=== PATIENT | male | born 1945 | race Two or more races ===

== ENCOUNTER → 2016-12-08 | Outpatient (CLI) | payer OTHER, MEDICARE ==
[2016-12-08 09:54] LABS: Basophils # (auto) 0 uL; Basophils % (auto) 0.6 % (0.0-2.0); Eosinophils # (auto) 0.1 uL; Eosinophils % (auto) 1.5 % (0.0-7.0); Hematocrit 40.4 % (41.0-53.0); Hemoglobin 13.2 g/dL (13.5-17.5); Lymphocytes # (auto) 3.1 uL; Lymphocytes % (auto) 36.8 % (10.0-50.0); Mean Corpuscular Hemoglobin 29.2 pg (28.0-32.0); Mean Corpuscular Hgb Conc. 32.6 g/dL (32.0-36.0); Mean Corpuscular Volume 89.6 fL (80.0-100.0); Mean Platelet Volume 7.2 fL (7.4-10.4); Monocytes # (auto) 0.5 uL; Monocytes % (auto) 5.6 % (0.0-12.0); Neutrophils # (auto) 4.7 uL; Neutrophils % (auto) 55.5 % (37.0-80.0); Platelet Count (auto) 374 10^3/uL (140-450); Red Cell Distribution Width 14.2 % (11.6-16.0); White Blood Cell 8.4 10^3/uL (4.4-10.8)
[2016-12-08 10:26] LABS: BUN/Creatinine Ratio 15.2; Bilirubin, Total 0.6 mg/dL (0.2-1.0); Calcium 8.9 mg/dL (8.5-10.1); Potassium 3.6 mmol/L (3.5-5.1); Total Protein 8.4 g/dL (6.4-8.2)
== END | disposition home or self-care (01) ==
LOC: LAB 08:56
PROVIDERS: ATTEND Family Medicine
DX: R50.9 Fever, unspecified (principal)
CPT/HCPCS: 36415; 80053; 85025; 85049

== ENCOUNTER → 2018-11-24 | Outpatient (CLI) | payer OTHER ==
[2018-11-24 09:48] LABS: Urine WBC None Seen /hpf (0 - 3)
[2018-11-24 09:56] LABS: Basophils # (auto) 0.1 uL; Basophils % (auto) 0.9 % (0.0-2.0); Eosinophils # (auto) 0.3 uL; Eosinophils % (auto) 4.4 % (0.0-7.0); Hematocrit 47.9 % (41.0-53.0); Hemoglobin 16.4 g/dL (13.5-17.5); Lymphocytes # (auto) 2.3 uL; Lymphocytes % (auto) 34.2 % (10.0-50.0); Mean Corpuscular Hemoglobin 31.6 pg (28.0-32.0); Mean Corpuscular Hgb Conc. 34.2 g/dL (32.0-36.0); Mean Corpuscular Volume 92.4 fL (80.0-100.0); Monocytes # (auto) 0.5 uL; Monocytes % (auto) 6.8 % (0.0-12.0); Neutrophils # (auto) 3.6 uL; Neutrophils % (auto) 53.7 % (37.0-80.0); Platelet Count (auto) 208 10^3/uL (140-450); Red Blood Cells 5.19 10^6/uL (4.5-5.90); Red Cell Distribution Width 13.8 % (11.8-14.3); White Blood Cell 6.8 10^3/uL (4.4-10.8)
[2018-11-24 10:18] LABS: Albumin 3.4 g/dL (3.4-5.0); Calcium 8.5 mg/dL (8.5-10.1)
[2018-11-24 10:19] LABS: INR 0.91 (0.9-1.15); Partial Thromboplastin Time 31.1 sec (23.78-33.04); Prothrombin Time 9.8 sec (9.27-12.13)
[2018-11-24 10:23] LABS: Free T4 (Free Thyroxine) 0.98 ng/dL (0.89-1.76); Urine Bacteria NONE SEEN /hpf (None Seen); Urine Blood Negative /uL (Negative); Urine Specific Gravity 1.014 (1.001-1.035)
[2018-11-24 10:24] LABS: Bilirubin, Total 0.7 mg/dL (0.2-1.0); Folate (Folic Acid) 17.24 ng/mL (5.38-24)
== END | disposition home or self-care (01) ==
LOC: LAB 09:05
PROVIDERS: ATTEND Internal Medicine
DX: E78.5 Hyperlipidemia, unspecified (principal); I10 Essential (primary) hypertension
CPT/HCPCS: 36415; 80053; 80061; 81001; 82607; 82746; 83036; 84439; 84443; 85025; 85610; 85730; 86704; 86706; 86708; 86803; 87340

== ENCOUNTER → 2020-01-30 | Outpatient (CLI) | payer OTHER ==
[2020-01-30 08:28] LABS: Urine WBC None Seen /hpf (0 - 3)
[2020-01-30 08:31] LABS: Basophils # (auto) 0 10 ^3/uL (0-0.2); Basophils % (auto) 0.7 % (0.0-2.0); Eosinophils # (auto) 0.3 10 ^3/uL (0-0.8); Eosinophils % (auto) 4.3 % (0.0-7.0); Hematocrit 46.9 % (41.0-53.0); Lymphocytes # (auto) 2.2 10 ^3/uL (0.4-5.4); Lymphocytes % (auto) 36.6 % (10.0-50.0); Mean Corpuscular Hemoglobin 31.5 pg (28.0-32.0); Mean Corpuscular Volume 92.6 fL (80.0-100.0); Monocytes # (auto) 0.3 10 ^3/uL (0-1.3); Monocytes % (auto) 5.1 % (0.0-12.0); Neutrophils # (auto) 3.2 10 ^3/uL (1.6-8.6); Neutrophils % (auto) 53.3 % (37.0-80.0); Nucleated Red Blood Cells % 0.1 %; Platelet Count (auto) 226 10^3/uL (140-450); Red Blood Cells 5.07 10^6/uL (4.5-5.90); White Blood Cell 5.9 10^3/uL (4.4-10.8)
[2020-01-30 08:32] LABS: Urine Bacteria NONE SEEN /hpf (None Seen); Urine Blood Negative /uL (Negative); Urine Specific Gravity 1.008 (1.001-1.035)
[2020-01-30 09:53] LABS: Potassium 3.9 mmol/L (3.5-5.1)
[2020-01-30 10:01] LABS: Folate (Folic Acid) 13.37 ng/mL (5.38-24); Prostate Specific Antigen 3.79 ng/mL (0.0-4.0)
[2020-01-30 10:04] LABS: Albumin 3.3 g/dL (3.4-5.0); BUN/Creatinine Ratio 10.7; Bilirubin, Total 0.5 mg/dL (0.2-1.0); Calcium 8.9 mg/dL (8.5-10.1); Total Protein 7.9 g/dL (6.4-8.2)
== END | disposition home or self-care (01) ==
LOC: LAB 08:10
PROVIDERS: ATTEND Nurse Practitioner
DX: I10 Essential (primary) hypertension (principal); E78.5 Hyperlipidemia, unspecified
CPT/HCPCS: 36415; 80053; 80061; 81001; 82306; 82607; 82746; 84153; 84443; 85025

== ENCOUNTER → 2021-06-24 | Outpatient (CLI) | payer OTHER ==
[2021-06-24 07:59] LABS: Basophils # (auto) 0.1 10 ^3/uL (0-0.2); Basophils % (auto) 1.3 % (0.0-2.0); Eosinophils # (auto) 0.2 10 ^3/uL (0-0.8); Eosinophils % (auto) 3.9 % (0.0-7.0); Hematocrit 44.9 % (41.0-53.0); Hemoglobin 15.6 g/dL (13.5-17.5); Lymphocytes % (auto) 32.4 % (10.0-50.0); Mean Corpuscular Hemoglobin 31.8 pg (28.0-32.0); Mean Corpuscular Hgb Conc. 34.8 g/dL (32.0-36.0); Mean Corpuscular Volume 91.2 fL (80.0-100.0); Monocytes # (auto) 0.4 10 ^3/uL (0-1.3); Monocytes % (auto) 6.1 % (0.0-12.0); Neutrophils # (auto) 3.5 10 ^3/uL (1.6-8.6); Neutrophils % (auto) 56.3 % (37.0-80.0); Red Blood Cells 4.92 10^6/uL (4.5-5.90); Red Cell Distribution Width 14.1 % (11.8-14.3); White Blood Cell 6.3 10^3/uL (4.4-10.8)
[2021-06-24 08:01] LABS: Urine Bacteria NONE SEEN /hpf (None Seen); Urine Blood Negative /uL (Negative); Urine Specific Gravity 1.013 (1.001-1.035); Urine WBC <1 /hpf (0 - 3)
[2021-06-24 08:42] LABS: Albumin 3.1 g/dL (3.4-5.0); Calcium 8.4 mg/dL (8.5-10.1); Potassium 3.7 mmol/L (3.5-5.1)
[2021-06-24 08:48] LABS: BUN/Creatinine Ratio 16.2; Bilirubin, Total 0.8 mg/dL (0.2-1.0); Total Protein 7.8 g/dL (6.4-8.2)
== END | disposition home or self-care (01) ==
LOC: LAB 07:45
PROVIDERS: ATTEND Nurse Practitioner
DX: I10 Essential (primary) hypertension (principal); E78.5 Hyperlipidemia, unspecified; N40.1 Benign prostatic hyperplasia with lower urinary tract symptoms
CPT/HCPCS: 36415; 80053; 80061; 81001; 84153; 84154; 84443; 85025

== ENCOUNTER → 2021-09-30 | Day surgery (SDC) | payer OTHER ==
[2021-09-25 11:30] LABS: Potassium 3.8 mmol/L (3.5-5.1)
[2021-09-25 11:51] LABS: Albumin 3.4 g/dL (3.4-5.0); BUN/Creatinine Ratio 14.4; Bilirubin, Total 0.6 mg/dL (0.2-1.0); Calcium 8.9 mg/dL (8.5-10.1); Total Protein 7.6 g/dL (6.4-8.2)
[2021-09-25 13:51] LABS: Basophils # (auto) 0 10 ^3/uL (0-0.2); Basophils % (auto) 0.7 % (0.0-2.0); Eosinophils # (auto) 0.2 10 ^3/uL (0-0.8); Eosinophils % (auto) 2.9 % (0.0-7.0); Hematocrit 46.8 % (41.0-53.0); Lymphocytes # (auto) 2.2 10 ^3/uL (0.4-5.4); Lymphocytes % (auto) 33.1 % (10.0-50.0); Mean Corpuscular Hemoglobin 31.7 pg (28.0-32.0); Mean Corpuscular Hgb Conc. 34.2 g/dL (32.0-36.0); Mean Corpuscular Volume 92.7 fL (80.0-100.0); Monocytes # (auto) 0.3 10 ^3/uL (0-1.3); Monocytes % (auto) 5.1 % (0.0-12.0); Neutrophils # (auto) 3.8 10 ^3/uL (1.6-8.6); Neutrophils % (auto) 58.2 % (37.0-80.0); Nucleated Red Blood Cells % 0.1 %; Red Blood Cells 5.04 10^6/uL (4.5-5.90); Red Cell Distribution Width 13.8 % (11.8-14.3); White Blood Cell 6.6 10^3/uL (4.4-10.8)
[~2021-09-30] VITALS: Ht 165.1 cm; Wt 82.6 kg
[2021-09-30] MEDS: diphenhdrAMINE HCL 50 MG/1 ML VL ONE ×2 (14:48→14:51)
[2021-09-30] MEDS: fentaNYL CITRATE 100 MCG/2 ML VL ONE ×2 (14:48→14:51)
[2021-09-30] MEDS: MIDAZOLAM HCL 5 MG/ML-1ML VIAL ONE ×2 (14:48→14:51)
[2021-09-30 15:35] VITALS: BP 142/82
== END | disposition home or self-care (01) ==
LOC: GI 12:59
PROVIDERS: ATTEND Internal Medicine Gastroenterology
DX: Z12.11 Encounter for screening for malignant neoplasm of colon (principal); K57.30 Diverticulosis of large intestine without perforation or abscess without bleeding; K64.8 Other hemorrhoids; N40.0 Benign prostatic hyperplasia without lower urinary tract symptoms; M13.862 Other specified arthritis, left knee; Z68.30 Body mass index [BMI] 30.0-30.9, adult; Z20.822 Contact with and (suspected) exposure to COVID-19; Z86.010 Personal history of colon polyps; Z98.890 Other specified postprocedural states; Z79.899 Other long term (current) drug therapy
CPT/HCPCS: 36415; 45378; 80053; 85025; J1200; J2250; J3010; J7030; U0003; 99152

== ENCOUNTER → 2021-12-16 | Day surgery (SDC) | payer OTHER ==
[2021-12-11 11:16] LABS: INR 0.97 (0.9-1.15); Partial Thromboplastin Time 30.5 sec (23.6-33.0)
[2021-12-11 11:17] LABS: Basophils # (auto) 0.1 10 ^3/uL (0-0.2); Basophils % (auto) 0.9 % (0.0-2.0); Eosinophils # (auto) 0.2 10 ^3/uL (0-0.8); Eosinophils % (auto) 2.7 % (0.0-7.0); Hematocrit 44.1 % (41.0-53.0); Hemoglobin 15.1 g/dL (13.5-17.5); Lymphocytes % (auto) 30.7 % (10.0-50.0); Mean Corpuscular Hemoglobin 31.2 pg (28.0-32.0); Mean Corpuscular Hgb Conc. 34.2 g/dL (32.0-36.0); Mean Corpuscular Volume 91.3 fL (80.0-100.0); Monocytes # (auto) 0.3 10 ^3/uL (0-1.3); Monocytes % (auto) 5.1 % (0.0-12.0); Neutrophils % (auto) 60.6 % (37.0-80.0); Nucleated Red Blood Cells % 0.1 %; Red Blood Cells 4.84 10^6/uL (4.5-5.90); Red Cell Distribution Width 14.3 % (11.8-14.3); White Blood Cell 6.6 10^3/uL (4.4-10.8)
[2021-12-11 11:47] LABS: Potassium 3.7 mmol/L (3.5-5.1)
[2021-12-11 12:07] LABS: Albumin 3.5 g/dL (3.4-5.0); BUN/Creatinine Ratio 14.2; Bilirubin, Total 0.4 mg/dL (0.2-1.0); Calcium 8.8 mg/dL (8.5-10.1); Total Protein 7.8 g/dL (6.4-8.2)
[~2021-12-16] VITALS: Ht 157.5 cm; Wt 82.1 kg
[~2021-12-16] MED LIST: FINA5TAB4 PO; LIDOCAINE VISCOUS 2% 15ML UD ONE; SODIUM CHLORIDE LOCK 10 ML ONE; TAMS0.4C36 PO; diphenhdrAMINE HCL 50 MG/1 ML VL ONE
[2021-12-16] MEDS: fentaNYL CITRATE 100 MCG/2 ML VL ONE ×2 (14:05→14:08)
[2021-12-16] MEDS: MIDAZOLAM HCL 5 MG/ML-1ML VIAL ONE ×2 (14:05→14:08)
[2021-12-16 15:35] VITALS: BP 127/69
== END | disposition home or self-care (01) ==
LOC: GI 12:04
PROVIDERS: ATTEND Internal Medicine Gastroenterology
DX: R10.13 Epigastric pain (principal); C16.9 Malignant neoplasm of stomach, unspecified; K21.9 Gastro-esophageal reflux disease without esophagitis; K44.9 Diaphragmatic hernia without obstruction or gangrene; K29.50 Unspecified chronic gastritis without bleeding; K25.9 Gastric ulcer, unspecified as acute or chronic, without hemorrhage or perforation; K29.80 Duodenitis without bleeding; M19.90 Unspecified osteoarthritis, unspecified site; Z98.890 Other specified postprocedural states; Z79.899 Other long term (current) drug therapy; Z20.822 Contact with and (suspected) exposure to COVID-19
CPT/HCPCS: 36415; 43239; 80053; 85025; 85610; 85730; 88305; 88342; J1200; J2250; J3010; J7030; U0003; 99152

== ENCOUNTER → 2024-01-20 | Outpatient (CLI) | payer OTHER ==
[~2024-01-20] MED LIST changes: -LIDOCAINE VISCOUS 2% 15ML UD ONE; -SODIUM CHLORIDE LOCK 10 ML ONE; -diphenhdrAMINE HCL 50 MG/1 ML VL ONE
[2024-01-20 08:32] LABS: Basophils # (auto) 0 10 ^3/uL (0-0.2); Basophils % (auto) 0.5 % (0.0-2.0); Eosinophils # (auto) 0.2 10 ^3/uL (0-0.8); Eosinophils % (auto) 3.1 % (0.0-7.0); Hematocrit 49.3 % (41.0-53.0); Hemoglobin 16.5 g/dL (13.5-17.5); Lymphocytes # (auto) 2.3 10 ^3/uL (0.4-5.4); Lymphocytes % (auto) 29.3 % (10.0-50.0); Mean Corpuscular Hemoglobin 30.9 pg (28.0-32.0); Mean Corpuscular Hgb Conc. 33.5 g/dL (32.0-36.0); Mean Corpuscular Volume 92.4 fL (80.0-100.0); Monocytes # (auto) 0.4 10 ^3/uL (0-1.3); Monocytes % (auto) 5.7 % (0.0-12.0); Neutrophils # (auto) 4.7 10 ^3/uL (1.6-8.6); Neutrophils % (auto) 61.4 % (37.0-80.0); Red Blood Cells 5.34 10^6/uL (4.5-5.90); Red Cell Distribution Width 14.1 % (11.8-14.3); White Blood Cell 7.7 10^3/uL (4.4-10.8)
[2024-01-20 08:37] LABS: Urine Bacteria NONE SEEN /hpf (None Seen); Urine Blood TRACE /uL (Negative); Urine Clarity Clear (Clear); Urine Color Colorless (Yellow); Urine Protein, UAD Negative (Negative); Urine Specific Gravity 1.011 (1.001-1.035); Urine Urobilinogen Normal (Negative); Urine WBC <1 /hpf (0 - 3)
[2024-01-20 08:56] LABS: Alanine Aminotransferase 19 U/L (7-40); Albumin 4.4 g/dL (3.2-4.8); Alkaline Phosphatase 137 U/L (46-116); Anion Gap 6 (5-15); Aspartate Aminotransferase 23 U/L (13-40); BUN/Creatinine Ratio 11.7 (10.0-20.0); Bilirubin, Total 0.7 mg/dL (0.2-1.0); Blood Urea Nitrogen 14 mg/dL (9-23); Calcium 9.6 mg/dL (8.5-10.1); Carbon Dioxide 27 mmol/L (20-30); Chloride 107 mmol/L (98-107); Glucose 105 mg/dL (74-106); HDL Cholesterol 52 mg/dL (40-59); LDL Cholesterol 117 mg/dL (< 100); Sodium 140 mmol/L (136-145); Triglycerides 131 mg/dL (< 150)
[2024-01-20 08:57] LABS: Total Protein 8.2 g/dL (5.7-8.2)
[2024-01-20 09:14] LABS: Cholesterol 173 mg/dL (< 200)
[2024-01-21 08:06] LABS: PSA Free 1.37 ng/mL; Prostate Specific Antigen 7.7 ng/mL (0.0-4.0)
== END | disposition home or self-care (01) ==
LOC: LAB 08:17
PROVIDERS: ATTEND Nurse Practitioner
DX: I10 Essential (primary) hypertension (principal); E78.5 Hyperlipidemia, unspecified
CPT/HCPCS: 36415; 80053; 80061; 81001; 83036; 84153; 84154; 84443; 85025

== ENCOUNTER → 2024-05-17 | Outpatient (CLI) | payer OTHER ==
[~2024-05-17] VITALS: Ht 157.5 cm; Wt 84.8 kg
[2024-05-17] MEDS: ADENOSINE 71 MG in GIVE UN-DILUTED 0 ML IV ONE (11:06)
== END | disposition home or self-care (01) ==
LOC: XYW 08:02
PROVIDERS: ATTEND Student in an Organized Health Care Education/Training Program
DX: Z01.810 Encounter for preprocedural cardiovascular examination (principal); E78.5 Hyperlipidemia, unspecified; N40.0 Benign prostatic hyperplasia without lower urinary tract symptoms; R94.31 Abnormal electrocardiogram [ECG] [EKG]; Z87.891 Personal history of nicotine dependence; I49.3 Ventricular premature depolarization
CPT/HCPCS: 78452; 93017; A9500; J0153

== ENCOUNTER 2024-08-21 06:00 | Inpatient (IN) | payer OTHER ==
[2024-08-17 11:52] LABS: Urine Bacteria None Seen /hpf (None Seen)
[2024-08-17 12:13] LABS: Basophils # (auto) 0 10 ^3/uL (0-0.2); Basophils % (auto) 0.6 % (0.0-2.0); Eosinophils # (auto) 0.2 10 ^3/uL (0-0.8); Eosinophils % (auto) 3.1 % (0.0-7.0); Hematocrit 45.3 % (41.0-53.0); Hemoglobin 15.7 g/dL (13.5-17.5); Lymphocytes # (auto) 2.1 10 ^3/uL (0.4-5.4); Lymphocytes % (auto) 26.2 % (10.0-50.0); Mean Corpuscular Hemoglobin 32.1 pg (28.0-32.0); Mean Corpuscular Hgb Conc. 34.8 g/dL (32.0-36.0); Mean Corpuscular Volume 92.3 fL (80.0-100.0); Monocytes # (auto) 0.6 10 ^3/uL (0-1.3); Monocytes % (auto) 7.6 % (0.0-12.0); Neutrophils % (auto) 62.5 % (37.0-80.0); Nucleated Red Blood Cells % 0.1 %; Platelet Count (auto) 294 10^3/uL (140-450); Red Cell Distribution Width 14.3 % (11.8-14.3); Urine Blood TRACE /uL (Negative); Urine Clarity Clear (Clear); Urine Color Light-Yellow (Yellow); Urine Protein, UAD Negative (Negative); Urine Specific Gravity 1.012 (1.001-1.035); Urine Urobilinogen Normal (Negative); Urine WBC <1 /hpf (0 - 3)
[2024-08-17 12:30] LABS: INR 1.01 (0.9-1.15); Partial Thromboplastin Time 29.6 SEC (24.5-34.5); Prothrombin Time 10.7 sec (9.3-11.8)
[2024-08-17 12:49] LABS: Alanine Aminotransferase 17 U/L (7-40); Albumin 4.2 g/dL (3.2-4.8); Alkaline Phosphatase 140 U/L (46-116); Anion Gap 8 (5-15); Calcium 9.6 mg/dL (8.7-10.4); Carbon Dioxide 25 mmol/L (20-31); Chloride 107 mmol/L (98-107); Potassium 3.6 mmol/L (3.5-5.1); Sodium 140 mmol/L (136-145)
[2024-08-17 12:50] LABS: Glucose 123 mg/dL (74-106)
[2024-08-17 12:51] LABS: BUN/Creatinine Ratio 11.5 (10.0-20.0); Blood Urea Nitrogen 13 mg/dL (9-23)
[2024-08-17 12:52] LABS: Aspartate Aminotransferase 17 U/L (13-40)
[2024-08-17 12:53] LABS: Bilirubin, Total 0.8 mg/dL (0.2-1.0); Total Protein 7.9 g/dL (5.7-8.2)
[~2024-08-21] VITALS: Ht 160 cm; Wt 75.4 kg
[2024-08-21] VITALS (16 sets, daily range): BP systolic 119–170; BP diastolic 63–94; PULSE 85–111; RESP 14–22; TEMP 97.3–98.4; O2SAT 94–100
[2024-08-21] MEDS ORDERED: levoFLOXacin 500MG 100 ML IV ONE (07:26)
[2024-08-21] MEDS ORDERED: MIDAZOLAM HCL 2MG/2ML 2ml VIAL (1mg/ml) ONE (07:27)
[2024-08-21] MEDS ORDERED: fentaNYL CITRATE 100 MCG/2 ML VL ONE (07:27)
[2024-08-21] MEDS ORDERED: DexAMETHasone SOD PHOS 10MG/1ML VIAL INJ ONE (07:28)
[2024-08-21] MEDS ORDERED: KETOROLAC TROMETH 30 MG/ML 1ML VIAL ONE (07:28)
[2024-08-21] MEDS ORDERED: PROPOFOL 10 MG/ML 20 ML IV ONE (07:28)
[2024-08-21] MEDS ORDERED: GLYCOPYRROLATE 0.2 MG/ML 1ML VIAL ONE (07:28)
[2024-08-21] MEDS ORDERED: ONDANSETRON HCL 4 MG/2 ML VIAL ONE (07:28)
[2024-08-21] MEDS ORDERED: LIDOCAINE 2% (LOCAL ANESTH.) PF 5ml SDV ONE (07:28)
[2024-08-21] MEDS ORDERED: MEPERIDINE HCL (25 MG/ML) 1ML VIAL ONE (08:05)
[2024-08-21] MEDS ORDERED: HYDROmorphone HCL 2 MG/ML VL/or syr IV PRN (08:45)
[2024-08-21] MEDS: ALBUTEROL SULF 2.5 MG/0.5ML(0.5%) NEB SOLN NEB ONE (09:34)
[2024-08-21] MEDS: IPRATROPIUM BROM 0.5 MG/2.5ML INH SOL NEB ONE (09:35)
[2024-08-21] MEDS ORDERED: MORPHINE SULFATE INJ 2 MG/ml SYRG IV PRN (09:45)
[2024-08-21] MEDS ORDERED: NITROGLYCERIN 0.4 MG SL TAB SL PRN (09:45)
[2024-08-21] MEDS ORDERED: ONDANSETRON HCL 4 MG/2 ML VIAL IV PRN (10:30)
[2024-08-21] MEDS ORDERED: THROAT LOZENGES(CEPASTAT) MT PRN (10:30)
[2024-08-21] MEDS: ALBUTEROL SULF 2.5 MG/0.5ML(0.5%) NEB SOLN NEB SCH (11:48)
[2024-08-21] MEDS: IPRATROPIUM BROM 0.5 MG/2.5ML INH SOL NEB SCH (11:48)
[2024-08-21] MEDS: hydrALAZINE HCL 20 MG/ML VL IV PRN (13:21)
[2024-08-21 14:27] LABS: Basophils # (auto) 0 10 ^3/uL (0-0.2); Basophils % (auto) 0.1 % (0.0-2.0); Eosinophils # (auto) 0 10 ^3/uL (0-0.8); Hematocrit 45.4 % (41.0-53.0); Hemoglobin 15.8 g/dL (13.5-17.5); Lymphocytes # (auto) 0.6 10 ^3/uL (0.4-5.4); Lymphocytes % (auto) 6.1 % (10.0-50.0); Mean Corpuscular Hemoglobin 32.6 pg (28.0-32.0); Mean Corpuscular Hgb Conc. 34.8 g/dL (32.0-36.0); Mean Corpuscular Volume 93.5 fL (80.0-100.0); Monocytes # (auto) 0.1 10 ^3/uL (0-1.3); Monocytes % (auto) 0.7 % (0.0-12.0); Neutrophils # (auto) 9.3 10 ^3/uL (1.6-8.6); Neutrophils % (auto) 93.1 % (37.0-80.0); Platelet Count (auto) 262 10^3/uL (140-450); Red Blood Cells 4.86 10^6/uL (4.5-5.90)
[2024-08-21] MEDS: ACETAMINOPHEN 500 MG TAB PO PRN (14:38)
[2024-08-21 14:51] LABS: Alanine Aminotransferase 17 U/L (7-40); Albumin 4.2 g/dL (3.2-4.8); Alkaline Phosphatase 139 U/L (46-116); Anion Gap 13 (5-15); Aspartate Aminotransferase 23 U/L (13-40); BUN/Creatinine Ratio 10.5 (10.0-20.0); Bilirubin, Total 0.5 mg/dL (0.2-1.0); Blood Urea Nitrogen 12 mg/dL (9-23); Calcium 9.4 mg/dL (8.7-10.4); Carbon Dioxide 20 mmol/L (20-31); Chloride 105 mmol/L (98-107); Glucose 181 mg/dL (74-106); Potassium 3.5 mmol/L (3.5-5.1); Sodium 138 mmol/L (136-145); Total Protein 7.8 g/dL (5.7-8.2)
[2024-08-21] MEDS ORDERED: TRAM50TA2 PO (19:38)
[2024-08-21] MEDS ORDERED: CIPR500T4 PO (19:38)
[2024-08-21] MEDS: SODIUM CHLORIDE 0.9% 1,000 ML IV SCH (22:22)
[2024-08-22] VITALS (10 sets, daily range): BP systolic 112–143; BP diastolic 54–80; PULSE 76–96; RESP 15–20; TEMP 36.8; O2SAT 93–98
[2024-08-22 02:44] LABS: Urine Bacteria FEW /hpf (None Seen); Urine Blood 3+ /uL (Negative); Urine Clarity Turbid (Clear); Urine Color Brown (Yellow); Urine Protein, UAD 1+ (Negative); Urine Specific Gravity 1.013 (1.001-1.035); Urine Urobilinogen Normal (Negative); Urine WBC 6 /hpf (0 - 3); Urine pH 5.5 (5.0-9.0)
[2024-08-22 06:01] LABS: Anion Gap 8 (5-15); Carbon Dioxide 24 mmol/L (20-31); Chloride 108 mmol/L (98-107); Potassium 3.7 mmol/L (3.5-5.1); Sodium 140 mmol/L (136-145)
[2024-08-22 06:07] LABS: BUN/Creatinine Ratio 11.3 (10.0-20.0); Basophils # (auto) 0 10 ^3/uL (0-0.2); Basophils % (auto) 0.1 % (0.0-2.0); Blood Urea Nitrogen 13 mg/dL (9-23); Eosinophils # (auto) 0 10 ^3/uL (0-0.8); Glucose 142 mg/dL (74-106); Hematocrit 40.4 % (41.0-53.0); Hemoglobin 14.2 g/dL (13.5-17.5); Lymphocytes # (auto) 0.9 10 ^3/uL (0.4-5.4); Lymphocytes % (auto) 9.4 % (10.0-50.0); Mean Corpuscular Hemoglobin 32.5 pg (28.0-32.0); Mean Corpuscular Hgb Conc. 35.2 g/dL (32.0-36.0); Mean Corpuscular Volume 92.2 fL (80.0-100.0); Monocytes # (auto) 0.5 10 ^3/uL (0-1.3); Monocytes % (auto) 5.4 % (0.0-12.0); Neutrophils # (auto) 8.5 10 ^3/uL (1.6-8.6); Neutrophils % (auto) 85.1 % (37.0-80.0); Platelet Count (auto) 243 10^3/uL (140-450); Red Blood Cells 4.39 10^6/uL (4.5-5.90); Red Cell Distribution Width 14.4 % (11.8-14.3)
[2024-08-22] MEDS: PNEUMOCOCCAL VACC POLYS 25 MCG/0.5 ML VIAL IM ONE (10:00)
[2024-08-22] MEDS: INFLUENZA QUAD 2023-2024 0.5 ML SYRG IM ONE (10:00)
[2024-08-22] MEDS ORDERED: IPRATROPIUM BROM 0.5 MG/2.5ML INH SOL ONE (18:36)
[2024-08-22] MEDS ORDERED: ALBUTEROL SULF 2.5 MG/0.5ML(0.5%) NEB SOLN ONE (18:36)
== END 2024-08-22 17:55 | disposition home or self-care (01) | DRG 726 ==
LOC: SUR 06:00 → OVERFLOW 09:38 → EAST 11:26
PROVIDERS: ADMIT Internal Medicine; ATTEND Internal Medicine
PROC: 0VB08ZX Excision of Prostate, Via Natural or Artificial Opening Endoscopic, Diagnostic (ICD-10-PCS; principal; 2024-08-21 07:27)
DX: N40.1 Benign prostatic hyperplasia with lower urinary tract symptoms (principal); R32 Unspecified urinary incontinence; R33.8 Other retention of urine; E66.9 Obesity, unspecified; Z68.29 Body mass index [BMI] 29.0-29.9, adult; Z79.899 Other long term (current) drug therapy
CPT/HCPCS: 36415; 71045; 80048; 80053; 81001; 85025; 85610; 85730; 87086; 94640; G0378; J1100; J1885; J1956; J2003; J2250; J2405; J2704

== ENCOUNTER 2024-09-12 16:46 | Inpatient (IN) | payer OTHER ==
[~2024-09-12] VITALS: Ht 160 cm; Wt 84.6 kg
[~2024-09-12 16:46] MED LIST changes: +CIPR500T4 PO; -FINA5TAB4 PO; -TAMS0.4C36 PO; +TRAM50TA2 PO
--- NOTE | 2024-09-12 17:27 | DVHINCON2 ---
Date of service: Sep 12, 2024 Referring Physician Hospitalist Reason for Consultation Prostate cancer BPH/urinary retention subjective fever History of Present Illness Patient with recent diagosis of prostate cancer, s/p cystoscopy/PNBX 08/21/24. Jensen 7(3+4) 3/12 cores positive. He has failed voiding trial 3 times. Choi catheter placed in the clinic today. C/o fever and malaise. He was sent to hospital for admission for medical management. Past Medical History HTN Prostate cancer BPH Past Surgical History Cystoscopy/ TRUS/ PNBX 08/21/24 Family History: FHx: stomach cancer G8 FATHER, Allergies: Coded Allergies: NO KNOWN ALLERGIES (Unverified , 05/17/24) Home Meds Reported Medications Tramadol Hcl (Tramadol Hcl) 50 Mg Tab, 50 MG PO Q6HPRN for pain 08/21/24 Ciprofloxacin Hcl (Ciprofloxacin Hcl) 500 Mg Tab, 500 MG PO BID 08/21/24 Review of Systems malaise fever urinary retention Physical Exam NAD PERRLA, EOMI Neck supple Lungs NRD Heart RRR Abd: distension resolved with Choi : normal NCCE Assessment Prostate cancer BPH/retention Plan/Recommendation Admit for medical management Possible TURP TBA Bone Scan and CT Scan AP NC Plan discussed with: Patient, Spouse, Other PAM RAMIREZ MD Sep 12, 2024 17:27
[2024-09-12] MEDS ORDERED: NITROGLYCERIN 0.4 MG SL TAB SL PRN (17:30)
[2024-09-12] MEDS ORDERED: MORPHINE SULFATE INJ 2 MG/ml SYRG IV PRN (17:30)
[2024-09-12 18:39] LABS: Basophils # (auto) 0 10 ^3/uL (0-0.2); Basophils % (auto) 0.1 % (0.0-2.0); Eosinophils # (auto) 0 10 ^3/uL (0-0.8); Eosinophils % (auto) 0.1 % (0.0-7.0); Hematocrit 42.7 % (41.0-53.0); Hemoglobin 14.7 g/dL (13.5-17.5); Lymphocytes # (auto) 1.2 10 ^3/uL (0.4-5.4); Lymphocytes % (auto) 5.8 % (10.0-50.0); Mean Corpuscular Hemoglobin 31.6 pg (28.0-32.0); Mean Corpuscular Hgb Conc. 34.4 g/dL (32.0-36.0); Mean Corpuscular Volume 91.8 fL (80.0-100.0); Monocytes # (auto) 1.3 10 ^3/uL (0-1.3); Monocytes % (auto) 6.3 % (0.0-12.0); Neutrophils # (auto) 18.1 10 ^3/uL (1.6-8.6); Neutrophils % (auto) 87.7 % (37.0-80.0); Platelet Count (auto) 285 10^3/uL (140-450); Red Blood Cells 4.65 10^6/uL (4.5-5.90); Red Cell Distribution Width 13.5 % (11.8-14.3); White Blood Cell 20.6 10^3/uL (4.4-10.8)
[2024-09-12 18:51] LABS: Chloride 95 mmol/L (98-107); Potassium 3.9 mmol/L (3.5-5.1); Sodium 128 mmol/L (136-145)
[2024-09-12 18:52] LABS: Anion Gap 8 (5-15); Calcium 9.5 mg/dL (8.7-10.4); Carbon Dioxide 25 mmol/L (20-31)
[2024-09-12 18:57] LABS: BUN/Creatinine Ratio 13.3 (10.0-20.0); Blood Urea Nitrogen 18 mg/dL (9-23); Glucose 109 mg/dL (74-106)
[2024-09-12 19:51] VITALS: PULSE 89; RESP 18; O2SAT 96
[2024-09-12 20:00] VITALS: PULSE 65; RESP 18; O2SAT 96
[2024-09-12 21:00] VITALS: BP 119/53; PULSE 108; RESP 21; TEMP 102.3; O2SAT 93
[2024-09-12] MEDS: ACETAMINOPHEN 325 MG TAB PO PRN (21:57)
[2024-09-12] MEDS: cefTRIAXone 1GM/50ML D5W 50 ML IV ONE (22:30)
[2024-09-12] MEDS: SODIUM CHLORIDE 0.9% 1,000 ML IV SCH (22:30)
[2024-09-12 23:09] LABS: INR 1.15 (0.9-1.15); Partial Thromboplastin Time 36.2 SEC (24.5-34.5); Prothrombin Time 12.1 sec (9.3-11.8)
[2024-09-13] VITALS (7 sets, daily range): BP systolic 97–127; BP diastolic 39–68; PULSE 65–108; RESP 16–20; TEMP 98–102.3; O2SAT 93–98
--- NOTE | 2024-09-13 01:42 | DVHHPRES ---
History of Present Illness Resident Creating Document: ALVINA PRABHAKAR RESIDENT History of Present Illness This is a 79 years old male with status post cystoscopy and prostate biopsy, postoperative urinary retention with Choi catheter referred from the urologist Dr. Johns to admitted in the [facility] for an evaluation of prostate cancer. The patient is complaining of chills fever malaise for 2 days and on admission temperature was 102. The patient also complaining of bilateral eczematous skin lesion in both of the great toes. The patient denies chest pain, dizziness, diaphoresis, shortness of breath, abdominal pain nausea, vomiting or any change in bowel and bladder habit. Dr. Johns evaluated the patient and recommended CT abdomen pelvis without contrast and bone scan. Past Medical History No significant past medical history Past Surgical History: None Family History No significant family history Smoke: No ALCOHOL: occassional Drugs: None Lives: with Family Review of Systems Constitutional: No: Fever, Chills, Sweats, Weakness, Malaise, Other Eyes: No: Pain, Vision change, Conjunctivae inflammation, Eyelid inflammation, Other, Redness ENT: No: Ear pain, Ear discharge, Nose pain, Nose discharge, Nose congestion, Mouth pain, Mouth swelling, Throat pain, Throat swelling, Other Respiratory: No: Cough, Dry, Shortness of breath, SOB with excertion, Wheezing, Hemoptysis, Pleuritic Pain, Sputum, Wheezing, Other Cardiovascular: No: Chest Pain, Palpitations, Orthopnea, Paroxysmal Noc. Dyspnea, Edema, Lt Headedness, Other Gastrointestinal: No: Nausea, Vomiting, Abdominal Pain, Diarrhea, Constipation, Melena, Hematochezia, Other Genitourinary: Frequency, Incontinence, Retention Musculoskeletal: No: other, neck pain, shoulder pain, arm pain, back pain, hand pain, leg pain, foot pain Skin: No: Rash, Lesions, Jaundice, Bruising, Other Neurological: No: Weakness, Numbness, Incoordination, Change in speech, Confusion, Seizures, Other Allergies: Coded Allergies: NO KNOWN ALLERGIES (Unverified , 05/17/24) Medications Current Medications Medications Dose Ordered Sig/Bereekt Route Start Time Stop Time Status Last Admin Dose Admin Nitroglycerin 0.4 mg Q5MINP PRN SL 09/12/24 17:30 Morphine Sulfate 2 mg Q30M PRN IV 09/12/24 17:30 Acetaminophen 650 mg Q6HP PRN PO 09/12/24 21:45 09/12/24 21:57 650 MG Sodium Chloride 1,000 ml @ 100 mls/hr Q10H IV 09/12/24 22:30 Ceftriaxone Sodium/Dextrose 50 ml @ 50 mls/hr DAILY IV 09/13/24 10:00 Exam Vital Signs Vital Signs Date Time Temp Pulse Resp B/P (MAP) Pulse Ox O2 Delivery O2 Flow Rate FiO2 09/12/24 21:57 102.0 09/12/24 21:00 108 21 119/53 (75) 93 General Appearance: Alert, Oriented X3, Cooperative, mild distress HEENT: Atraumatic, PERRLA, EOMI, Mucous membr. moist/pink Respiratory: Clear to auscultation, Normal air movement Cardiovascular: Regular rate, Normal S1, Normal S2, No murmurs Abdominal: Normal bowel sounds, Soft, No tenderness, No hepatospenomegaly, No masses Extremities: No clubbing, No cyanosis, No edema, Normal pulses, No tenderness/swelling Skin: No rashes, No breakdown, No significant lesion Neuro: Normal gait, Strength at 5/5 X4 ext, Normal tone, Sensation intact (Grossly intact cranial nerves) Psych/Mental Status: Mental status NL, Mood NL Labs/Xrays Labs Test 09/12/24 18:24 Range/Units White Blood Count 20.6 H 4.4-10.8 10^3/uL Red Blood Count 4.65 4.5-5.90 10^6/uL Hemoglobin 14.7 13.5-17.5 g/dL Hematocrit 42.7 41.0-53.0 % Mean Corpuscular Volume 91.8 80.0-100.0 fL Mean Corpuscular Hemoglobin 31.6 28.0-32.0 pg Mean Corpuscular Hemoglobin Concent 34.4 32.0-36.0 g/dL Red Cell Distribution Width 13.5 11.8-14.3 % Platelet Count 285 140-450 10^3/uL Mean Platelet Volume 6.9 6.9-10.8 fL Neutrophils (%) (Auto) 87.7 H 37.0-80.0 % Lymphocytes (%) (Auto) 5.8 L 10.0-50.0 % Monocytes (%) (Auto) 6.3 0.0-12.0 % Eosinophils (%) (Auto) 0.1 0.0-7.0 % Basophils (%) (Auto) 0.1 0.0-2.0 % Neutrophils # (Auto) 18.1 H 1.6-8.6 10 ^3/uL Lymphocytes # (Auto) 1.2 0.4-5.4 10 ^3/uL Monocytes # (Auto) 1.3 0-1.3 10 ^3/uL Eosinophils # (Auto) 0 0-0.8 10 ^3/uL Basophils # (Auto) 0 0-0.2 10 ^3/uL Nucleated Red Blood Cells 0.0 % Prothrombin Time 12.1 H 9.3-11.8 sec Prothrombin Time INR 1.15 0.9-1.15 Activated Partial Thromboplast Time 36.2 H 24.5-34.5 SEC Sodium Level 128 L 136-145 mmol/L Potassium Level 3.9 3.5-5.1 mmol/L Chloride Level 95 L 98-107 mmol/L Carbon Dioxide Level 25 20-31 mmol/L Anion Gap 8 5-15 Blood Urea Nitrogen 18 9-23 mg/dL Creatinine 1.35 H 0.700-1.30 mg/dL Glomerular Filtration Rate Calc 53 >90 mL/min BUN/Creatinine Ratio 13.3 10.0-20.0 Serum Glucose 109 H 74-106 mg/dL Hemoglobin A1c 5.2 <5.7 % A1C Calcium Level 9.5 8.7-10.4 mg/dL Vitamin B12 Level 337 211-911 pg/mL Vitamin D 25-Hydroxy 20.8 L 30.0-100 ng/mL Thyroid Stimulating Hormone (TSH) 0.87 0.55-4.78 uIU/mL Assessment/Plan Assessment/Plan Assessment and plan: # sepsis likely due [place] [address] and temperature [place] 102 - IV normal saline at 100 mL/hour - started IV ceftriaxone 2 g daily # BPH/urinary retention/elevated PSA - status post cystoscopy with biopsy 3 weeks ago - Dr. Johns evaluated the patient and recommended CT scan of the abdomen pelvis without contrast and bone scan. # LUISITO likely due to hemodynamically mediated/VMN - IV normal saline at 100 mL/hour - monitor BMP # Vitamin D deficiency - Vitamin D 65364 units Q 7D # DVT prophylaxis - hold due to the possibility of the procedure Goal of care discussed with the patient for more than 20 minutes full Code Plan of treatment discussed with Dr. Nichols Plan discussed with: Patient, Other My Orders Orders - ALVINA PRABHAKAR Procedure Category Date Status Time Blood Culture BRIAN 09/12/24 Uncollected 22:15 Urine Bacterial BRIAN 09/12/24 Uncollected Culture 22:15 Urinalysis LAB 09/12/24 Uncollected 22:15 Chest Xray 1 View XY 09/12/24 Logged 22:15 Sodium Chloride 0.9% PHA 09/12/24 In Process 22:30 Ceftriaxone 2gm/50ml PHA 09/13/24 In Process D5w (Rocephin 2gm/5 10:00 Complete Blood Count LAB 09/13/24 Logged 04:00 Comprehensive LAB 09/13/24 Logged Metabolic Panel 04:00 Date of Service: Sep 12, 2024 Billing Provider: DANIELLE NICHOLS MD Common Visit Codes: [id number] INP/OBS CARE (HIGH) Secondary Visit Codes: [id number] CARE PLAN 30 MINUTES ALVINA PRABHAKAR Sep 13, 2024 01:42 DANIELLE NICHOLS MD Sep 13, 2024 15:46
[2024-09-13 05:18] LABS: Basophils # (auto) 0 10 ^3/uL (0-0.2); Basophils % (auto) 0.1 % (0.0-2.0); Eosinophils # (auto) 0 10 ^3/uL (0-0.8); Hematocrit 43.1 % (41.0-53.0); Hemoglobin 14.8 g/dL (13.5-17.5); Lymphocytes # (auto) 1.5 10 ^3/uL (0.4-5.4); Lymphocytes % (auto) 6.4 % (10.0-50.0); Mean Corpuscular Hemoglobin 31.8 pg (28.0-32.0); Mean Corpuscular Hgb Conc. 34.5 g/dL (32.0-36.0); Mean Corpuscular Volume 92.2 fL (80.0-100.0); Monocytes # (auto) 1.6 10 ^3/uL (0-1.3); Monocytes % (auto) 6.7 % (0.0-12.0); Neutrophils % (auto) 86.8 % (37.0-80.0); Platelet Count (auto) 295 10^3/uL (140-450); Red Blood Cells 4.68 10^6/uL (4.5-5.90); Red Cell Distribution Width 13.4 % (11.8-14.3); White Blood Cell 23.1 10^3/uL (4.4-10.8)
[2024-09-13 05:33] LABS: Alanine Aminotransferase 22 U/L (7-40); Albumin 4.1 g/dL (3.2-4.8); Alkaline Phosphatase 204 U/L (46-116); Anion Gap 9 (5-15); Aspartate Aminotransferase 32 U/L (13-40); BUN/Creatinine Ratio 11.5 (10.0-20.0); Bilirubin, Total 2.9 mg/dL (0.2-1.0); Blood Urea Nitrogen 18 mg/dL (9-23); Calcium 9.7 mg/dL (8.7-10.4); Carbon Dioxide 25 mmol/L (20-31); Chloride 98 mmol/L (98-107); Glucose 91 mg/dL (74-106); Potassium 3.5 mmol/L (3.5-5.1); Sodium 132 mmol/L (136-145)
[2024-09-13 05:34] LABS: Total Protein 7.8 g/dL (5.7-8.2)
[2024-09-13] MEDS: ERGOCALCIFEROL 50,000 UNIT(1.25MG) CAP PO SCH (06:58)
[2024-09-13] MEDS: cefTRIAXone 2GM/50ML D5W 50 ML IV SCH (09:31)
--- NOTE | 2024-09-13 09:45 | DVH ---
Procedure: CT CT AB PEL WO CON-NO ORAL OR IV 09/13/2024 09:05 AM Indication:prostate cancer. Comparison Study: None available at time of dictation. Technique: Axial images were obtained and reformatted in coronal and sagittal planes. All CT scans at this medical facility are performed using dose modulation techniques as appropriate t o a performed exam including the following: Automated exposure control was utilized; adjustment of th e MA and/or KV according to patient size; and use of iterative reconstruction technique. CT Dose: CTDI volume is 11 mGy. Dose-length product is 705 mGy*cm FINDINGS: Lower Chest: Bibasilar subsegmental atelectasis is noted. Hepatobiliary: Hepatic steatosis. Spleen: Unremarkable. Pancreas: Unremarkable. Adrenal Glands: Unremarkable. tract: The kidneys are normal in size bilaterally without hydronephrosis or nephrolithiasis. Blad cristian is decompressed with a Choi catheter and cannot be adequately assessed. Few subcentimeter bilate ral renal cysts are incompletely evaluated in the current unenhanced study. Bladder wall is trabecula [place]. GI tract: The stomach is grossly normal in appearance. No evidence of small bowel obstruction. Diffu se colonic diverticulosis, severe in the sigmoid colon without evidence of diverticulitis. The appe ndix is normal. Lymphatics: No mesenteric, retroperitoneal or periportal lymphadenopathy. Vasculature: The abdominal aorta is normal in caliber. Diffuse calcified plaque formation is noted. Pelvic Organs: Enlarged prostate measuring 6.5 x 5.7 cm with a subcentimeter calcification noted in a nterior left paramedian lower gland. Fat stranding noted surrounding the prostate and seminal vesicle s. Bones/soft tissues: No acute abnormality. Multilevel degenerative changes of the lumbar spine noted. Other: None. IMPRESSION: 1. Enlarged prostate with moderate fat stranding surrounding the prostate and seminal vesicles that m ay represent prostatitis or seminal vesiculitis. Recommend clinical and biochemical correlation.No dr kidd fluid collection is seen in this unenhanced study. No significant pelvic or retroperitoneally mphadenopathy. 2. Hepatic steatosis. 3. Small bilateral renal cysts, incompletely evaluated in this unenhanced study.Recommend correlation withultrasound. 4. Diffuse colonicdiverticulosis without diverticulitis.
[2024-09-13 10:14] LABS: Urine Bacteria FEW /hpf (None Seen); Urine Blood 3+ /uL (Negative); Urine Clarity Turbid (Clear); Urine Color Light-Orange (Yellow); Urine Protein, UAD 1+ (Negative); Urine Specific Gravity 1.006 (1.001-1.035); Urine Urobilinogen Normal (Negative); Urine WBC 38 /hpf (0 - 3); Urine pH 5.5 (5.0-9.0)
--- NOTE | 2024-09-13 10:20 | DVH ---
CHEST RADIOGRAPH Indication:Rule out pneumonia Technique: Single frontal view of the chest was obtained Comparison: XY CHEST PORTABLE on DOS: 08/21/24, XY CHEST PORTABLE on DOS: 08/21/24 FINDINGS: Lines and Tubes: None Lungs: No focal consolidation. Low lung volumes with bibasilar atelectasis. Pleura: No effusion. No pneumothorax. Cardiomediastinal contours: Unremarkable Bones: No acute osseous abnormality. IMPRESSION: Low lung volumes with bibasilar atelectasis.No acute cardiopulmonary disease.
--- NOTE | 2024-09-13 11:34 | DVHPNRES ---
Progress Note Date Seen: Sep 13, 2024 Resident Creating Document: KAEL LARA RESIDENT Medical Necessity Reason Pt with a Central, PICC or Fol: Yes The following are medically ne: Keene Catheter Reason for keene catheter: Bladder Retention/Obstruc Subjective Review of Systems Patient is an 79-year-old male with past medical history of BPH, recently diagnosed prostatic carcinoma, postoperative urinary retention with Keene catheter in place, hypertension, who was admitted from his urologist office for evaluation of prostate cancer. Patient reports he had a prostatic biopsy on 08/21/2024, after which he has been experiencing urinary retention, prior to the biopsy patient had urinary incontinence. Patient notes that he was sent home with a catheter after the prostatic biopsy which was subsequently removed on 09/06/2024 by an the nurse in the ER. Patient was recatheterized yesterday on 09/12/2024 at the urologist's office. Past surgical history: Denies Home medications: Denies, reports having recently completed a course of antibiotics for 10 days, patient unsure which antibiotic Past Hospitalization: In August 2024 at the [facility] for observation after prostatic biopsy Social & Personal history: Patient lives with his family in [place]. Denies using tobacco, drinks alcohol on weekends, 2 beers per day. Denies using any drugs. Allergies: Denies Patient seen and examined at bedside. Patient is alert and oriented to time, place person and responding to all questions. General: Reports feeling fatigue, fever and chill Eyes: No Pain, No Vision change, No Conjunctivae inflammation, No Eyelid inflammation, No Other, No Redness ENT: No Ear pain, No Ear discharge, No Nose pain, No Nose discharge, No Nose congestion, No Mouth pain, No Mouth swelling, No Throat pain, No Throat swelling, No Other Cardiovascular: No Chest Pain, No Palpitations, No Orthopnea, No Paroxysmal No Dyspnea, No Edema, No Lt Headedness, No Other Respiratory: No Cough, No Dry, No Shortness of breath, No SOB with exertion, No Wheezing, No Hemoptysis, No Pleuritic Pain, No Sputum, No Other Gastrointestinal: No Nausea, No Vomiting, No Abdominal Pain, No Diarrhea, No Constipation, No Melena, No Hematochezia, No Other Genitourinary: No Dysuria, No Frequency, No Incontinence, No Hematuria, No Retention, No Other Musculoskeletal: No other, No neck pain, No shoulder pain, No arm pain, No back pain, No hand pain, No leg pain, No foot pain Skin: No Rash, No Lesions, No Jaundice, No Bruising, No Other Objective vital signs Vital Sign Date Time Temp Pulse Resp B/P (MAP) Pulse Ox O2 Delivery O2 Flow Rate FiO2 09/13/24 09:00 98.0 72 16 124/39 (67) 94 98.0 09/12/24 20:00 Room Air* 0 21 Total Intake and Output 09/12/24 09/12/24 09/13/24 15:00 23:00 07:00 Intake Total 350 ml 350 ml Output Total 500 ml Balance 350 ml -150 ml medications Current Medications Medications Dose Ordered Sig/Bereket Route Start Time Stop Time Status Last Admin Dose Admin Nitroglycerin 0.4 mg Q5MINP PRN SL 09/12/24 17:30 Morphine Sulfate 2 mg Q30M PRN IV 09/12/24 17:30 Acetaminophen 650 mg Q6HP PRN PO 09/12/24 21:45 09/12/24 21:57 650 MG Sodium Chloride 1,000 ml @ 100 mls/hr Q10H IV 09/12/24 22:30 09/13/24 09:39 100 MLS/HR Ceftriaxone Sodium/Dextrose 50 ml @ 50 mls/hr DAILY IV 09/13/24 10:00 09/13/24 09:31 50 MLS/HR Ergocalciferol 50,000 unit Q7D PO 09/13/24 01:45 09/13/24 06:58 50,000 UNIT Examination General Appearance: Cooperative. Well developed. Dry mucous membrane NAD Head Exam: Normal inspection Neck Exam: Normal inspection. Non-tender. Normal alignment Pulmonary/Respiratory: Chest non-tender. Clear bilateral breath sounds, no crackles, no wheezing. Cardiovascular/Chest: Regular rate and rhythm. No murmurs. No JVD. Peripheral Pulses: 2+ Radial (R). 2+ Radial (L). 2+ Pedal (R). 2+ Pedal (L) Abdominal Exam: Normal bowel sounds. Soft. normal abdomen, no visible veins, Nontender. No hepatospenomegaly. No masses. Suprapubic tenderness mild noted Ankle Exam: Negative ankle edema Lower extremities: Negative lower extremity edema Neuro/Mental Status: A&O x4. Coherent. Thoughts/Psych: Normal thought pattern. Appropriate mood and affect. Good judgement and insight Skin Exam: Normal inspection. Normal color. Warm. Dry laboratory and microbiology Laboratory Tests 09/13/24 04:33 Test 09/13/24 04:33 Range/Units Serum Glucose 91 74-106 mg/dL Problem List/Assessment/Plan Problem List/Assessment/Plan Acute prostatitis versus seminal vesiculitis Possible sepsis due to above - IV NS at 100 cc/hour - IV ciprofloxacin 400 mg q.12 - IV vancomycin per pharmacy Recently diagnosed prostatic cancer Benign prostatic hyperplasia Postoperative urinary retention with the urinary catheter in place - urology consulted; CT scan does not show evidence of lymphadenopathy - bone scan pending - pending urine bacterial culture LUISITO, likely hemodynamically mediated/VMN vs post-obstructive nephropathy - IV NS at 100 cc/hour Euvolemic hyponatremia, mild, likely SIADH, asymptomatic - we will continue to monitor Hypertension, currently stable - we will continue to monitor Vitamin-D deficiency - repleted DVT prophylaxis: SCD. Held as patient still has hematuria Goals of care: Full code, discussed for >16 minutes on 09/13/24 Plan discussed with patient Plan discussed with Dr. Nichols Plan discussed with: Patient, Other (RN) My Orders My Orders Orders - KAEL LARA Procedure Category Date Status Time Cardiac DIET 09/13/24 Transmitted Diet-2gna,Lofat,Lochol Breakfast Date of Service: Sep 13, 2024 Billing Provider: DANIELLE NICHOLS MD Common Visit Codes: [id number] INP/OBS CARE(HIGH) KAEL LARA Sep 13, 2024 11:34 DANIELLE NICHOLS MD Sep 14, 2024 09:32
--- NOTE | 2024-09-13 14:26 | DVHPN2 ---
Progress Note - Dictate Date Seen: Sep 13, 2024 Has the PT tested + for MRSA If YES, has PT been informed?: No Medical Necessity Reason Pt with a Central, PICC or Fol: Yes The following are medically ne: Keene Catheter Reason for keene catheter: Bladder Retention/Obstruc Medical Necessity Reason Urinary retention Prostate cancer vital signs Vital Sign Date Time Temp Pulse Resp B/P (MAP) Pulse Ox O2 Delivery O2 Flow Rate FiO2 09/13/24 13:00 99.7 65 18 120/55 (76) 97 99.7 09/13/24 08:00 Room Air* 0 21 Total Intake and Output 09/12/24 09/12/24 09/13/24 15:00 23:00 07:00 Intake Total 350 ml 350 ml Output Total 500 ml Balance 350 ml -150 ml medications Current Medications Medications Dose Ordered Sig/Bereket Route Start Time Stop Time Status Last Admin Dose Admin Nitroglycerin 0.4 mg Q5MINP PRN SL 09/12/24 17:30 Morphine Sulfate 2 mg Q30M PRN IV 09/12/24 17:30 Acetaminophen 650 mg Q6HP PRN PO 09/12/24 21:45 09/12/24 21:57 650 MG Sodium Chloride 1,000 ml @ 100 mls/hr Q10H IV 09/12/24 22:30 09/13/24 09:39 100 MLS/HR Ceftriaxone Sodium/Dextrose 50 ml @ 50 mls/hr DAILY IV 09/13/24 10:00 09/13/24 09:31 50 MLS/HR Ergocalciferol 50,000 unit Q7D PO 09/13/24 01:45 09/13/24 06:58 50,000 UNIT objective PATIENT: CINDY FLORES ACCT: [id number] UNIT: [id number] : 1945 LOC: [facility] ROOM / BED: [address] [place] [address] AGE / SEX: 79 / M ADM STATUS: ADM IN SERVICE 26 ORDERING PHYSICIAN: PAM RAMIREZ MD PROCEDURE(s): ABPL - CT AB PEL WO CON-NO ORAL OR IV REASON: prostate cancer ORDER NUMBER(s): [id number], ACCESSION NUMBER(s): [id number] Procedure: CT CT AB PEL WO CON-NO ORAL OR IV 09/13/2024 09:05 AM Indication:prostate cancer. Comparison Study: None available at time of dictation. Technique: Axial images were obtained and reformatted in coronal and sagittal planes. All CT scans at this medical facility are performed using dose modulation techniques as appropriate to a performed exam including the following: Automated exposure control was utilized; adjustment of the MA and/or KV according to patient size; and use of iterative reconstruction technique. CT Dose: CTDI volume is 11 mGy. Dose-length product is 705 mGy*cm FINDINGS: Lower Chest: Bibasilar subsegmental atelectasis is noted. Hepatobiliary: Hepatic steatosis. Spleen: Unremarkable. Pancreas: Unremarkable. Adrenal Glands: Unremarkable. tract: The kidneys are normal in size bilaterally without hydronephrosis or nephrolithiasis. Bladder is decompressed with a Keene catheter and cannot be adequately assessed. Few subcentimeter bilateral renal cysts are incompletely evaluated in the current unenhanced study. Bladder wall is trabeculated. GI tract: The stomach is grossly normal in appearance. No evidence of small bowel obstruction. Diffuse colonic diverticulosis, severe in the sigmoid colon without evidence of diverticulitis. The appendix is normal. Lymphatics: No mesenteric, retroperitoneal or periportal lymphadenopathy. Vasculature: The abdominal aorta is normal in caliber. Diffuse calcified plaque formation is noted. Pelvic Organs: Enlarged prostate measuring 6.5 x 5.7 cm with a subcentimeter calcification noted in anterior left paramedian lower gland. Fat stranding noted surrounding the prostate and seminal vesicles. Bones/soft tissues: No acute abnormality. Multilevel degenerative changes of the lumbar spine noted. Other: None. IMPRESSION: 1. Enlarged prostate with moderate fat stranding surrounding the prostate and seminal vesicles that may represent prostatitis or seminal vesiculitis. Recommend clinical and biochemical correlation.No drainable fluid collection is seen in this unenhanced study. No significant pelvic or retroperitoneallymphadenopathy. 2. Hepatic steatosis. 3. Small bilateral renal cysts, incompletely evaluated in this unenhanced study.Recommend correlation withultrasound. 4. Diffuse colonicdiverticulosis without diverticulitis. ATED BY: ELLEN MAGALLON MD DICTATED DATE/TIME: 09/13/24942 SIGNED BY: ELLEN MAGALLON MD SIGNED DATE/TIME: 09/13/24 0943 CC: laboratory and microbiology Laboratory Tests 09/13/24 04:33 Test 09/13/24 04:33 Range/Units Serum Glucose 91 74-106 mg/dL Problem List Enlarged prostate gland Prostate cancer Urinary retention elevated WBC Assessment/Plan CT Scan does not show evidence of lymphadenopathy. Bone Scan pending Urine culture Plan discussed with: Patient, Spouse PAM RAMIREZ MD Sep 13, 2024 14:26
[2024-09-13] MEDS ORDERED: VANCOMYCIN PER PHARMACY 0 MG IV SCH (18:00)
[2024-09-13] MEDS: VANCOMYCIN 1GM/200ML PREMIX 200 ML IV SCH (18:22)
[2024-09-13] MEDS ORDERED: cefTRIAXone 1GM/50ML D5W 50 ML IV SCH (21:00)
[2024-09-13] MEDS: CIPROFLOXACIN 400MG/200ML 200 ML IV SCH (21:59)
[2024-09-14] VITALS (12 sets, daily range): BP systolic 93–140; BP diastolic 39–71; PULSE 66–120; RESP 16–20; TEMP 97.3–101.6; O2SAT 92–99
[2024-09-14 06:34] LABS: Chloride 103 mmol/L (98-107); Potassium 3.5 mmol/L (3.5-5.1); Sodium 137 mmol/L (136-145)
[2024-09-14 06:35] LABS: Anion Gap 10 (5-15); Calcium 8.6 mg/dL (8.7-10.4); Carbon Dioxide 24 mmol/L (20-31)
[2024-09-14 06:40] LABS: BUN/Creatinine Ratio 14.7 (10.0-20.0); Blood Urea Nitrogen 21 mg/dL (9-23); Glucose 87 mg/dL (74-106)
[2024-09-14 06:50] LABS: Basophils # (auto) 0 10 ^3/uL (0-0.2); Basophils % (auto) 0.1 % (0.0-2.0); Eosinophils # (auto) 0 10 ^3/uL (0-0.8); Hematocrit 41.6 % (41.0-53.0); Hemoglobin 14.3 g/dL (13.5-17.5); Lymphocytes # (auto) 0.6 10 ^3/uL (0.4-5.4); Lymphocytes % (auto) 3.9 % (10.0-50.0); Mean Corpuscular Hemoglobin 31.7 pg (28.0-32.0); Mean Corpuscular Hgb Conc. 34.3 g/dL (32.0-36.0); Mean Corpuscular Volume 92.3 fL (80.0-100.0); Monocytes # (auto) 0.5 10 ^3/uL (0-1.3); Monocytes % (auto) 3.2 % (0.0-12.0); Neutrophils # (auto) 15.3 10 ^3/uL (1.6-8.6); Neutrophils % (auto) 92.8 % (37.0-80.0); Platelet Count (auto) 261 10^3/uL (140-450); Red Cell Distribution Width 13.9 % (11.8-14.3); White Blood Cell 16.5 10^3/uL (4.4-10.8)
--- NOTE | 2024-09-14 08:22 | DVHPN2 ---
Progress Note - Dictate Date Seen: Sep 14, 2024 Has the PT tested + for MRSA If YES, has PT been informed?: No Medical Necessity Reason Pt with a Central, PICC or Fol: Yes The following are medically ne: Keene Catheter Reason for keene catheter: Bladder Retention/Obstruc Medical Necessity Reason Urinary retention Prostate cancer vital signs Vital Sign Date Time Temp Pulse Resp B/P (MAP) Pulse Ox O2 Delivery O2 Flow Rate FiO2 09/14/24 07:56 101.6 101.6 09/14/24 05:00 109 20 111/57 (75) 94 09/13/24 20:00 Room Air* 0 21 Total Intake and Output 09/13/24 09/13/24 09/14/24 15:00 23:00 07:00 Intake Total 1050 ml 200 ml Output Total 1450 ml 375 ml Balance -400 ml -175 ml medications Current Medications Medications Dose Ordered Sig/Bereket Route Start Time Stop Time Status Last Admin Dose Admin Nitroglycerin 0.4 mg Q5MINP PRN SL 09/12/24 17:30 Morphine Sulfate 2 mg Q30M PRN IV 09/12/24 17:30 Acetaminophen 650 mg Q6HP PRN PO 09/12/24 21:45 09/14/24 06:45 650 MG Sodium Chloride 1,000 ml @ 100 mls/hr Q10H IV 09/12/24 22:30 09/13/24 09:39 100 MLS/HR Ergocalciferol 50,000 unit Q7D PO 09/13/24 01:45 09/13/24 06:58 50,000 UNIT Vancomycin HCl 0 ml @ 0 mls/hr UD IV 09/13/24 18:00 Ciprofloxacin 200 ml @ 200 mls/hr Q12H IV 09/13/24 21:00 09/13/24 21:59 200 MLS/HR objective PATIENT: CINDY FLORES ACCT: [id number] UNIT: [id number] : 1945 LOC: [facility] ROOM / BED: [address] [place] [address] AGE / SEX: 79 / M ADM STATUS: ADM IN SERVICE 168 ORDERING PHYSICIAN: PAM RAMIREZ MD PROCEDURE(s): ABPL - CT AB PEL WO CON-NO ORAL OR IV REASON: prostate cancer ORDER NUMBER(s): [id number], ACCESSION NUMBER(s): [id number] Procedure: CT CT AB PEL WO CON-NO ORAL OR IV 09/13/2024 09:05 AM Indication:prostate cancer. Comparison Study: None available at time of dictation. Technique: Axial images were obtained and reformatted in coronal and sagittal planes. All CT scans at this medical facility are performed using dose modulation techniques as appropriate to a performed exam including the following: Automated exposure control was utilized; adjustment of the MA and/or KV according to patient size; and use of iterative reconstruction technique. CT Dose: CTDI volume is 11 mGy. Dose-length product is 705 mGy*cm FINDINGS: Lower Chest: Bibasilar subsegmental atelectasis is noted. Hepatobiliary: Hepatic steatosis. Spleen: Unremarkable. Pancreas: Unremarkable. Adrenal Glands: Unremarkable. tract: The kidneys are normal in size bilaterally without hydronephrosis or nephrolithiasis. Bladder is decompressed with a Keene catheter and cannot be adequately assessed. Few subcentimeter bilateral renal cysts are incompletely evaluated in the current unenhanced study. Bladder wall is trabeculated. GI tract: The stomach is grossly normal in appearance. No evidence of small bowel obstruction. Diffuse colonic diverticulosis, severe in the sigmoid colon without evidence of diverticulitis. The appendix is normal. Lymphatics: No mesenteric, retroperitoneal or periportal lymphadenopathy. Vasculature: The abdominal aorta is normal in caliber. Diffuse calcified plaque formation is noted. Pelvic Organs: Enlarged prostate measuring 6.5 x 5.7 cm with a subcentimeter calcification noted in anterior left paramedian lower gland. Fat stranding noted surrounding the prostate and seminal vesicles. Bones/soft tissues: No acute abnormality. Multilevel degenerative changes of the lumbar spine noted. Other: None. IMPRESSION: 1. Enlarged prostate with moderate fat stranding surrounding the prostate and seminal vesicles that may represent prostatitis or seminal vesiculitis. Recommend clinical and biochemical correlation.No drainable fluid collection is seen in this unenhanced study. No significant pelvic or retroperitoneallymphadenopathy. 2. Hepatic steatosis. 3. Small bilateral renal cysts, incompletely evaluated in this unenhanced study.Recommend correlation withultrasound. 4. Diffuse colonicdiverticulosis without diverticulitis. ATED BY: ELLEN MAGALLON MD DICTATED DATE/TIME: 09/13/24942 SIGNED BY: ELLEN MAGALLON MD SIGNED DATE/TIME: 09/13/24942 CC: laboratory and microbiology Laboratory Tests 09/14/24 05:50 Test 09/14/24 05:50 Range/Units Serum Glucose 87 74-106 mg/dL Problem List Enlarged prostate gland Prostate cancer Urinary retention elevated WBC Assessment/Plan CT Scan does not show evidence of lymphadenopathy. Bone Scan pending Urine culture TURP on Tuesday09/17/24 pending outcome of Bone Scan results Plan discussed with: Patient, Spouse PAM RAMIREZ MD Sep 14, 2024 08:22
--- NOTE | 2024-09-14 16:58 | DVHPNRES ---
Progress Note Date Seen: Sep 14, 2024 Resident Creating Document: KAEL LARA RESIDENT Has the PT tested + for MRSA If YES, has PT been informed?: No Medical Necessity Reason Pt with a Central, PICC or Fol: Yes The following are medically ne: Keene Catheter Reason for keene catheter: Bladder Retention/Obstruc Subjective Review of Systems Patient is an 79-year-old male with past medical history of BPH, recently diagnosed prostatic carcinoma, postoperative urinary retention with Keene catheter in place, hypertension, who was admitted from his urologist office for evaluation of prostate cancer. Patient reports he had a prostatic biopsy on 08/21/2024, after which he has been experiencing urinary retention, prior to the biopsy patient had urinary incontinence. Patient notes that he was sent home with a catheter after the prostatic biopsy which was subsequently removed on 09/06/2024 by an the nurse in the ER. Patient was recatheterized yesterday on 09/12/2024 at the urologist's office. Past surgical history: Denies Home medications: Denies, reports having recently completed a course of antibiotics for 10 days, patient unsure which antibiotic Past Hospitalization: In August 2024 at the [facility] for observation after prostatic biopsy Social & Personal history: Patient lives with his family in [place]. Denies using tobacco, drinks alcohol on weekends, 2 beers per day. Denies using any drugs. Allergies: Denies Patient seen and examined at bedside. Patient is alert and oriented to time, place person and responding to all questions. Details of patient's diagnosis and management were discussed with the patient in detail, all questions were answered and concerns addressed. Patient denies any active discomfort or pain, however, Keene is still draining matias yellow urine. Objective vital signs Vital Sign Date Time Temp Pulse Resp B/P (MAP) Pulse Ox O2 Delivery O2 Flow Rate FiO2 09/14/24 16:29 98.1 89 18 102/60 (74) 98 98.1 09/14/24 08:00 Room Air* 0 21 Total Intake and Output 09/13/24 09/13/24 09/14/24 15:00 23:00 07:00 Intake Total 1050 ml 200 ml Output Total 1450 ml 375 ml Balance -400 ml -175 ml medications Current Medications Medications Dose Ordered Sig/Bereket Route Start Time Stop Time Status Last Admin Dose Admin Nitroglycerin 0.4 mg Q5MINP PRN SL 09/12/24 17:30 Morphine Sulfate 2 mg Q30M PRN IV 09/12/24 17:30 Acetaminophen 650 mg Q6HP PRN PO 09/12/24 21:45 09/14/24 06:45 650 MG Sodium Chloride 1,000 ml @ 100 mls/hr Q10H IV 09/12/24 22:30 09/14/24 10:31 100 MLS/HR Ergocalciferol 50,000 unit Q7D PO 09/13/24 01:45 09/13/24 06:58 50,000 UNIT Vancomycin HCl 0 ml @ 0 mls/hr UD IV 09/13/24 18:00 Ciprofloxacin 200 ml @ 200 mls/hr Q12H IV 09/13/24 21:00 09/14/24 10:31 200 MLS/HR Examination General Appearance: Cooperative. Well developed. Head Exam: Normal inspection Neck Exam: Normal inspection. Non-tender. Normal alignment Pulmonary/Respiratory: Chest non-tender. Clear bilateral breath sounds, no crackles, no wheezing. Cardiovascular/Chest: Regular rate and rhythm. No murmurs. No JVD. Peripheral Pulses: 2+ Radial (R). 2+ Radial (L). 2+ Pedal (R). 2+ Pedal (L) Abdominal Exam: Normal bowel sounds. Soft. normal abdomen, no visible veins. No hepatosplenomegaly. No masses. Suprapubic tenderness mild noted Ankle Exam: Negative ankle edema Lower extremities: Negative lower extremity edema Neuro/Mental Status: A&O x4. Coherent. Thoughts/Psych: Normal thought pattern. Appropriate mood and affect. Good judgement and insight Skin Exam: Normal inspection. Normal color. Warm. Dry laboratory and microbiology Laboratory Tests 09/14/24 05:50 Test 09/14/24 05:50 Range/Units Serum Glucose 87 74-106 mg/dL Microbiology Date/Time Source Procedure Growth Status 09/13/24 11:00 Blood Blood Culture - Preliminary NO GROWTH AFTER 24 HOURS OF INCUBATION. Resulted 09/13/24 09:30 Voided Urine Urine Culture - Preliminary Resulted 09/12/24 21:00 Nose MRSA Screen - Final Complete Labs and/or images reviewed: Labs reviewed by me, Image(s) reviewed by me Problem List/Assessment/Plan Problem List/Assessment/Plan Acute prostatitis versus seminal vesiculitis Sepsis due to above Leukocytosis due to sepsis - IV NS at 100 cc/hour - IV ciprofloxacin 400 mg q.12 - IV vancomycin per pharmacy - CT abdomen pelvis: Enlarged prostate with moderate fat stranding surrounding the prostate and seminal vesicles that may represent prostatitis or seminal vesiculitis. Recommend clinical and biochemical correlation.No drainable fluid collection is seen in this unenhanced study. No significant pelvic or retroperitoneal lymphadenopathy.Hepatic steatosis. Small bilateral renal cysts, incompletely evaluated in this unenhanced study.Recommend correlation with ultrasound. Diffuse colonic diverticulosis without diverticulitis. Recently diagnosed prostatic cancer Benign prostatic hyperplasia Postoperative urinary retention with the urinary catheter in place - urology consulted; CT scan does not show evidence of lymphadenopathy - bone scan pending - pending urine bacterial culture - scheduled for TURP on Tuesday09/17/2024 pending outcome of bone scan results. LUISITO, likely hemodynamically mediated/VMN vs post-obstructive nephropathy - IV NS at 100 cc/hour Euvolemic hyponatremia, mild, likely SIADH, asymptomatic - we will continue to monitor Hypertension, currently stable - we will continue to monitor Vitamin-D deficiency - repleted DVT prophylaxis: SCDs. Anti-Coagulation held as patient still has hematuria Goals of care: Full code, discussed for 20 minutes on 09/14/24 Plan discussed with patient Plan discussed with Dr. Arana Plan discussed with: Patient, Other (RN) My Orders My Orders Orders - KAEL LARA RESIDENT Procedure Category Date Status Time Vancomycin Per PHA 09/13/24 In Process Pharmacy 18:00 Ciprofloxacin PHA 09/13/24 In Process 400mg/200ml (Cipro Iv) 21:00 Vancomycin Per ALISHA 09/13/24 In Process Pharmacy Protoc 18:11 Vancomycin,Random LAB 09/15/24 Verified 05:00 Creatinine LAB 09/15/24 Verified 05:00 Addendum Addendum Addendum I was physically present for the patrick portions of the service provided to patient by THE RESIDENT. I have reviewed the documentation, discussed the case with resident and agree with the resident's documentation except as noted. Also the patient's clinical case was discussed with the patient's nurse. This medical document was created using an electronic medical record system with computerized dictation system. Although this document has been carefully reviewed, there might still be some phonetic and typographical errors. These areas are purely typographical due to imperfections of the software programs, and do not reflect any compromise in the patient's medical care. Late signature. Date of Service: Sep 14, 2024 Billing Provider: SHIVA ARANA MD Common Visit Codes: [id number] INP/OBS CARE(HIGH) Secondary Visit Codes: 87364-[id number] CARE PLAN 30 MINUTES (20 minutes) KAEL LARA Sep 14, 2024 16:57 SHIVA ARANA MD Sep 15, 2024 04:09
[2024-09-15 01:00] VITALS: BP 119/60; PULSE 101; RESP 17; TEMP 98.5; O2SAT 94
[2024-09-15 05:00] VITALS: BP 124/55; PULSE 107; RESP 18; TEMP 98.7; O2SAT 92
[2024-09-15 06:59] LABS: Basophils # (auto) 0 10 ^3/uL (0-0.2); Basophils % (auto) 0.2 % (0.0-2.0); Eosinophils # (auto) 0.1 10 ^3/uL (0-0.8); Eosinophils % (auto) 0.7 % (0.0-7.0); Hematocrit 37.4 % (41.0-53.0); Hemoglobin 12.8 g/dL (13.5-17.5); Lymphocytes # (auto) 0.9 10 ^3/uL (0.4-5.4); Lymphocytes % (auto) 4.8 % (10.0-50.0); Mean Corpuscular Hemoglobin 31.2 pg (28.0-32.0); Mean Corpuscular Hgb Conc. 34.1 g/dL (32.0-36.0); Mean Corpuscular Volume 91.3 fL (80.0-100.0); Monocytes # (auto) 1.1 10 ^3/uL (0-1.3); Monocytes % (auto) 6.3 % (0.0-12.0); Neutrophils # (auto) 15.9 10 ^3/uL (1.6-8.6); Platelet Count (auto) 268 10^3/uL (140-450); Red Cell Distribution Width 13.4 % (11.8-14.3)
[2024-09-15 07:51] LABS: Chloride 105 mmol/L (98-107); Potassium 3.1 mmol/L (3.5-5.1); Sodium 135 mmol/L (136-145)
[2024-09-15 07:52] LABS: Anion Gap 9 (5-15); Calcium 8.5 mg/dL (8.7-10.4); Carbon Dioxide 21 mmol/L (20-31)
[2024-09-15 07:57] LABS: BUN/Creatinine Ratio 17.4 (10.0-20.0); Blood Urea Nitrogen 20 mg/dL (9-23); Glucose 110 mg/dL (74-106)
[2024-09-15 09:00] VITALS: BP 126/52; PULSE 80; RESP 14; TEMP 98.6; O2SAT 98
[2024-09-15 13:00] VITALS: BP 143/84; PULSE 113; RESP 18; TEMP 98; O2SAT 96
[2024-09-15] MEDS: VANCOMYCIN 1GM/200ML PREMIX 200 ML IV SCH (13:11)
[2024-09-15 17:00] VITALS: BP 127/89; PULSE 78; RESP 16; TEMP 98; O2SAT 94
--- NOTE | 2024-09-15 18:25 | DVHPNRES ---
Progress Note Date Seen: Sep 15, 2024 Resident Creating Document: KEITH ROCHE Has the PT tested + for MRSA If YES, has PT been informed?: No Medical Necessity Reason Pt with a Central, PICC or Fol: Yes The following are medically ne: Keene Catheter Reason for keene catheter: Bladder Retention/Obstruc Subjective Review of Systems Patient is significantly feels better than yesterday Patient reports: No new complaints (Chills), Feels better Changes from previous H/P or p: No Changes Review of Systems: HEENT:Normal, CVS:Normal, RESPIRATORY:Normal, GI:Normal, :Abnormal (On catheter), MSK:Normal, NEURO:Normal Objective vital signs Vital Sign Date Time Temp Pulse Resp B/P (MAP) Pulse Ox O2 Delivery O2 Flow Rate FiO2 09/15/24 17:00 98.0 78 16 127/89 (102) 94 98.0 09/15/24 08:00 Room Air* 0 21 Total Intake and Output 09/14/24 09/14/24 09/15/24 15:00 23:00 07:00 Intake Total 600 ml 1800 ml 1400 ml Output Total 300 ml 400 ml Balance 300 ml 1400 ml 1400 ml medications Current Medications Medications Dose Ordered Sig/Bereket Route Start Time Stop Time Status Last Admin Dose Admin Nitroglycerin 0.4 mg Q5MINP PRN SL 09/12/24 17:30 Morphine Sulfate 2 mg Q30M PRN IV 09/12/24 17:30 Acetaminophen 650 mg Q6HP PRN PO 09/12/24 21:45 09/14/24 06:45 650 MG Sodium Chloride 1,000 ml @ 100 mls/hr Q10H IV 09/12/24 22:30 09/15/24 13:11 100 MLS/HR Ergocalciferol 50,000 unit Q7D PO 09/13/24 01:45 09/13/24 06:58 50,000 UNIT Vancomycin HCl 0 ml @ 0 mls/hr UD IV 09/13/24 18:00 Vancomycin HCl 200 ml @ 200 mls/hr Q24H IV 09/15/24 12:00 09/15/24 13:11 200 MLS/HR Ceftriaxone Sodium 50 ml @ 100 mls/hr DAILY@09 IV 09/16/24 09:00 Examination: GENERAL:Normal, HEENT:Normal, NECK:Normal, LUNGS:Abnormal (basal rales, likely due to bilateral mild atelectasis), CVS:Normal, ABDOMEN:Abnormal (Mild suprapubic tenderness), MSK:Normal, SKIN:Normal, NEURO:Normal, :Normal (On catheter normal urine volume in color noted) laboratory and microbiology Laboratory Tests 09/15/24 06:24 Test 09/15/24 06:24 Range/Units Serum Glucose 110 H 74-106 mg/dL Microbiology Date/Time Source Procedure Growth Status 09/13/24 11:00 Blood Blood Culture - Preliminary NO GROWTH AFTER 48 HOURS OF INCUBATION. Resulted 09/13/24 09:30 Voided Urine Urine Culture - Final Escherichia coli Complete 09/12/24 21:00 Nose MRSA Screen - Final Complete Labs and/or images reviewed: Labs reviewed by me, Image(s) reviewed by me Problem List/Assessment/Plan Problem List/Assessment/Plan Hospital course: Mr. Blackwell, a 79-year-old male with a history of benign prostatic hyperplasia (BPH), recently diagnosed prostate cancer, and hypertension. He was admitted for prostate cancer evaluation. After a prostatic biopsy on 08/21/2024, he experienced urinary retention and was initially sent home with a catheter, which was removed on 09/06/2024. He was recatheterized on 09/12/2024. He denies any past surgeries and home medications but recently completed a 10-day course of antibiotics. He was hospitalized in August 2024 for observation post-biopsy. Socially, he lives with his family in [place], denies tobacco and drug use, and drinks two beers per day on weekends. #acute prostatitis with/ without seminal vesiculitis: Acute symptoms subsiding, patient feeling symptomatically better, continue IV antibiotics and in-hospital follow up. Appreciate input from Urology. Dr. Johns, on board, planned surgical TURP on Tuesday after IV antibiotics. #presented sepsis due to above, continue IV fluid, CBC follow up and close monitoring, follow cultures #postprocedural /postoperative urinary retention with urinary catheter in place: Noted fluoroquinolone resistant E coli. Changing ciprofloxacin to IV ceftriaxone / Rocephin. Follow up blood culture, urine culture, for any other update. #recently diagnosed prostatic cancer , following up Dr. Johns, pending TURP #history of BPH /benign prostatic hyperplasia , on catheter passing urine. #LUISITO likely due to VMN/ postrenal obstruction , catheter likely helping, follow renal function with input / output. unremarkable urine. # euvolemic Mild hyponatremia : improved # essential hypertension: Blood pressure well controlled, continue to monitor # vitamin D deficiency: Continue supplementation # mild hypokalemia: 3.1 this morning, oral replenishment done. Repeat CMP tomorrow. # grade 1 obesity Diet: continue cardiac diet for now. NPO after midnight of Tuesday/ Tuesday morning. Plan discussed with Dr. Arana. Barrier to discharge: Patient needs to be medically stable, pending surgical procedure on Tuesday. Plan discussed with: Patient, Other (Primary team, RN) My Orders My Orders Orders - BENNETT GUILLEN RESIDENT Procedure Category Date Status Time Ceftriaxone 1gm/50ml PHA 09/16/24 In Process D5w (Rocephin) 09:00 Comprehensive LAB 09/16/24 Verified Metabolic Panel 04:00 Addendum Addendum Addendum I was physically present for the patrick portions of the service provided to patient by THE RESIDENT. I have reviewed the documentation, discussed the case with resident and agree with the resident's documentation except as noted. Also the patient's clinical case was discussed with the patient's nurse. This medical document was created using an electronic medical record system with computerized dictation system. Although this document has been carefully reviewed, there might still be some phonetic and typographical errors. These areas are purely typographical due to imperfections of the software programs, and do not reflect any compromise in the patient's medical care. Late signature. Date of Service: Sep 15, 2024 Billing Provider: SHIVA ARANA MD Common Visit Codes: [id number] INP/OBS CARE(HIGH) BENNETT GUILLEN Sep 15, 2024 18:25 SHIVA ARANA MD Sep 16, 2024 06:00
[2024-09-15] MEDS: POTASSIUM EFFERVESENT TAB 25 MEQ PO ONE (20:10)
[2024-09-15 21:00] VITALS: BP 130/72; PULSE 109; RESP 20; TEMP 98.5; O2SAT 92
[2024-09-16 05:00] VITALS: BP 128/74; PULSE 91; RESP 18; TEMP 98.2; O2SAT 96
[2024-09-16 06:53] LABS: Basophils # (auto) 0 10 ^3/uL (0-0.2); Basophils % (auto) 0.2 % (0.0-2.0); Eosinophils # (auto) 0.2 10 ^3/uL (0-0.8); Eosinophils % (auto) 1.6 % (0.0-7.0); Hematocrit 38.4 % (41.0-53.0); Hemoglobin 13.1 g/dL (13.5-17.5); Lymphocytes # (auto) 1.5 10 ^3/uL (0.4-5.4); Lymphocytes % (auto) 12.6 % (10.0-50.0); Mean Corpuscular Hemoglobin 31.5 pg (28.0-32.0); Mean Corpuscular Hgb Conc. 34.2 g/dL (32.0-36.0); Mean Corpuscular Volume 92.2 fL (80.0-100.0); Monocytes # (auto) 1.4 10 ^3/uL (0-1.3); Monocytes % (auto) 11.6 % (0.0-12.0); Neutrophils # (auto) 8.7 10 ^3/uL (1.6-8.6); Platelet Count (auto) 239 10^3/uL (140-450); Red Blood Cells 4.17 10^6/uL (4.5-5.90); Red Cell Distribution Width 13.8 % (11.8-14.3); White Blood Cell 11.7 10^3/uL (4.4-10.8)
[2024-09-16 07:15] LABS: Alanine Aminotransferase 46 U/L (7-40); Alkaline Phosphatase 351 U/L (46-116); Anion Gap 10 (5-15); BUN/Creatinine Ratio 16.2 (10.0-20.0); Blood Urea Nitrogen 16 mg/dL (9-23); Calcium 8.3 mg/dL (8.7-10.4); Carbon Dioxide 22 mmol/L (20-31); Chloride 106 mmol/L (98-107); Glucose 95 mg/dL (74-106); Potassium 3.4 mmol/L (3.5-5.1); Sodium 138 mmol/L (136-145)
[2024-09-16 07:16] LABS: Albumin 2.9 g/dL (3.2-4.8); Aspartate Aminotransferase 68 U/L (13-40)
[2024-09-16 07:17] LABS: Bilirubin, Total 0.7 mg/dL (0.2-1.0); Total Protein 5.5 g/dL (5.7-8.2)
[2024-09-16] MEDS: cefTRIAXone 1GM/50ML D5W 50 ML IV SCH (07:54)
[2024-09-16 08:29] VITALS: BP 124/65; PULSE 68; RESP 18; TEMP 99.9; O2SAT 95
[2024-09-16] MEDS: POTASSIUM EFFERVESENT TAB 25 MEQ PO ONE (11:20)
[2024-09-16 13:00] VITALS: BP 107/58; PULSE 70; RESP 18; TEMP 98.2; O2SAT 96
[2024-09-16 16:54] VITALS: BP 135/71; PULSE 94; RESP 17; TEMP 98.1; O2SAT 99
--- NOTE | 2024-09-16 19:46 | DVHPNRES ---
Progress Note Date Seen: Sep 16, 2024 Resident Creating Document: KAEL LARA RESIDENT Has the PT tested + for MRSA If YES, has PT been informed?: No Medical Necessity Reason Pt with a Central, PICC or Fol: Yes The following are medically ne: Keene Catheter Reason for keene catheter: Bladder Retention/Obstruc Subjective Review of Systems Patient is an 79-year-old male with past medical history of BPH, recently diagnosed prostatic carcinoma, postoperative urinary retention with Keene catheter in place, hypertension, who was admitted from his urologist office for evaluation of prostate cancer. Patient reports he had a prostatic biopsy on 08/21/2024, after which he has been experiencing urinary retention, prior to the biopsy patient had urinary incontinence. Patient notes that he was sent home with a catheter after the prostatic biopsy which was subsequently removed on 09/06/2024 by an the nurse in the ER. Patient was recatheterized yesterday on 09/12/2024 at the urologist's office. Past surgical history: Denies Home medications: Denies, reports having recently completed a course of antibiotics for 10 days, patient unsure which antibiotic Past Hospitalization: In August 2024 at the [facility] for observation after prostatic biopsy Social & Personal history: Patient lives with his family in [place]. Denies using tobacco, drinks alcohol on weekends, 2 beers per day. Denies using any drugs. Allergies: Denies Patient seen and examined at bedside. Patient is alert and oriented to time, place person and responding to all questions. Details of patient's diagnosis and management were discussed with the patient in detail, all questions were answered and concerns addressed. Patient denies any active discomfort or pain, however, Keene is still draining matias yellow urine. Objective vital signs Vital Sign Date Time Temp Pulse Resp B/P (MAP) Pulse Ox O2 Delivery O2 Flow Rate FiO2 09/16/24 16:54 98.1 94 17 135/71 (92) 99 98.1 09/16/24 08:00 Room Air* 0 21 Total Intake and Output 09/15/24 09/15/24 09/16/24 15:00 23:00 07:00 Intake Total 200 ml 1800 ml 0 ml Output Total 800 ml 2200 ml Balance 200 ml 1000 ml -2200 ml medications Current Medications Medications Dose Ordered Sig/Bereket Route Start Time Stop Time Status Last Admin Dose Admin Nitroglycerin 0.4 mg Q5MINP PRN SL 09/12/24 17:30 Morphine Sulfate 2 mg Q30M PRN IV 09/12/24 17:30 Acetaminophen 650 mg Q6HP PRN PO 09/12/24 21:45 09/14/24 06:45 650 MG Sodium Chloride 1,000 ml @ 100 mls/hr Q10H IV 09/12/24 22:30 09/16/24 12:19 100 MLS/HR Ergocalciferol 50,000 unit Q7D PO 09/13/24 01:45 09/13/24 06:58 50,000 UNIT Vancomycin HCl 0 ml @ 0 mls/hr UD IV 09/13/24 18:00 Vancomycin HCl 200 ml @ 200 mls/hr Q24H IV 09/15/24 12:00 09/16/24 11:08 200 MLS/HR Ceftriaxone Sodium 50 ml @ 100 mls/hr DAILY@09 IV 09/16/24 09:00 09/16/24 07:54 100 MLS/HR Examination General Appearance: Cooperative. Well developed. Head Exam: Normal inspection Neck Exam: Normal inspection. Non-tender. Normal alignment Pulmonary/Respiratory: Chest non-tender. Clear bilateral breath sounds, no crackles, no wheezing. Cardiovascular/Chest: Regular rate and rhythm. No murmurs. No JVD. Peripheral Pulses: 2+ Radial (R). 2+ Radial (L). 2+ Pedal (R). 2+ Pedal (L) Abdominal Exam: Normal bowel sounds. Soft. normal abdomen, no visible veins. No hepatosplenomegaly. No masses. Suprapubic tenderness mild noted Ankle Exam: Negative ankle edema Lower extremities: Negative lower extremity edema Neuro/Mental Status: A&O x4. Coherent. Thoughts/Psych: Normal thought pattern. Appropriate mood and affect. Good judgement and insight Skin Exam: Normal inspection. Normal color. Warm. Dry laboratory and microbiology Laboratory Tests 09/16/24 06:22 Test 09/16/24 06:22 Range/Units Serum Glucose 95 74-106 mg/dL Microbiology Date/Time Source Procedure Growth Status 09/13/24 11:00 Blood Blood Culture - Preliminary NO GROWTH AFTER 72 HOURS OF INCUBATION. Resulted 09/13/24 09:30 Voided Urine Urine Culture - Final Escherichia coli Complete 09/12/24 21:00 Nose MRSA Screen - Final Complete Labs and/or images reviewed: Labs reviewed by me, Image(s) reviewed by me Problem List/Assessment/Plan Problem List/Assessment/Plan Acute prostatitis versus seminal vesiculitis Possible sepsis due to above - IV NS at 100 cc/hour - IV ciprofloxacin 400 mg q.12 - IV vancomycin per pharmacy - CT abdomen pelvis: Enlarged prostate with moderate fat stranding surrounding the prostate and seminal vesicles that may represent prostatitis or seminal vesiculitis. Recommend clinical and biochemical correlation.No drainable fluid collection is seen in this unenhanced study. No significant pelvic or retroperitoneal lymphadenopathy.Hepatic steatosis. Small bilateral renal cysts, incompletely evaluated in this unenhanced study.Recommend correlation withultrasound. Diffuse colonicdiverticulosis without diverticulitis. - ordered PT evaluation Recently diagnosed prostatic cancer Benign prostatic hyperplasia Postoperative urinary retention with the urinary catheter in place - urology consulted; CT scan does not show evidence of lymphadenopathy - bone scan pending - pending urine bacterial culture - scheduled for TURP on Tuesday09/17/2024; pending outcome of bone scan results. LUISITO, likely hemodynamically mediated/VMN vs post-obstructive nephropathy - IV NS at 100 cc/hour Euvolemic hyponatremia, mild, likely SIADH, asymptomatic - we will continue to monitor Hypertension, currently stable - we will continue to monitor Vitamin-D deficiency - repleted Hypokalemia - replace potassium 25 mEq p.o. DVT prophylaxis: SCDs. Held anticoagulant as patient still has hematuria Plan discussed with patient Plan discussed with Dr. Arana Plan discussed with: Patient, Other (RN) My Orders My Orders Orders - KAEL LARA RESIDENT Procedure Category Date Status Time Pt Request For Service PT 09/16/24 Logged 10:41 Addendum Addendum Addendum I was physically present for the patrick portions of the service provided to patient by THE RESIDENT. I have reviewed the documentation, discussed the case with resident and agree with the resident's documentation except as noted. Also the patient's clinical case was discussed with the patient's nurse. This medical document was created using an electronic medical record system with computerized dictation system. Although this document has been carefully reviewed, there might still be some phonetic and typographical errors. These areas are purely typographical due to imperfections of the software programs, and do not reflect any compromise in the patient's medical care. Late signature. Date of Service: Sep 16, 2024 Billing Provider: SHVIA ARANA MD Common Visit Codes: [id number] INP/OBS CARE(HIGH) JANEKAEL RESIDENT Sep 16, 2024 19:46 SHIVA ARANA MD Sep 17, 2024 09:38
--- NOTE | 2024-09-16 20:34 | DVHPN2 ---
Progress Note - Dictate Date Seen: Sep 16, 2024 Has the PT tested + for MRSA If YES, has PT been informed?: No Medical Necessity Reason Pt with a Central, PICC or Fol: Yes The following are medically ne: Keene Catheter Reason for keene catheter: Bladder Retention/Obstruc Medical Necessity Reason Failed voiding trial x 3 UTI with E. coli sensitive to Rocephin Prostate cancer Subjective No new issues. Agrees to proceeding with TURP for BPH/retention/UTI vital signs Vital Sign Date Time Temp Pulse Resp B/P (MAP) Pulse Ox O2 Delivery O2 Flow Rate FiO2 09/16/24 16:54 98.1 94 17 135/71 (92) 99 98.1 09/16/24 08:00 Room Air* 0 21 Total Intake and Output 09/15/24 09/15/24 09/16/24 15:00 23:00 07:00 Intake Total 200 ml 1800 ml 0 ml Output Total 800 ml 2200 ml Balance 200 ml 1000 ml -2200 ml medications Current Medications Medications Dose Ordered Sig/Bereket Route Start Time Stop Time Status Last Admin Dose Admin Nitroglycerin 0.4 mg Q5MINP PRN SL 09/12/24 17:30 Morphine Sulfate 2 mg Q30M PRN IV 09/12/24 17:30 Acetaminophen 650 mg Q6HP PRN PO 09/12/24 21:45 09/14/24 06:45 650 MG Sodium Chloride 1,000 ml @ 100 mls/hr Q10H IV 09/12/24 22:30 09/16/24 12:19 100 MLS/HR Ergocalciferol 50,000 unit Q7D PO 09/13/24 01:45 09/13/24 06:58 50,000 UNIT Vancomycin HCl 0 ml @ 0 mls/hr UD IV 09/13/24 18:00 Vancomycin HCl 200 ml @ 200 mls/hr Q24H IV 09/15/24 12:00 09/16/24 11:08 200 MLS/HR Ceftriaxone Sodium 50 ml @ 100 mls/hr DAILY@09 IV 09/16/24 09:00 09/16/24 07:54 100 MLS/HR objective PATIENT: CINDY FLORES ACCT: [id number] UNIT: [id number] : 1945 LOC: [facility] ROOM / BED: [address] [place] [address] AGE / SEX: 79 / M ADM STATUS: ADM IN SERVICE [id number] ORDERING PHYSICIAN: PAM RAMIREZ MD PROCEDURE(s): ABPL - CT AB PEL WO CON-NO ORAL OR IV REASON: prostate cancer ORDER NUMBER(s): [id number], ACCESSION NUMBER(s): [id number] Procedure: CT CT AB PEL WO CON-NO ORAL OR IV 09/13/2024 09:05 AM Indication:prostate cancer. Comparison Study: None available at time of dictation. Technique: Axial images were obtained and reformatted in coronal and sagittal planes. All CT scans at this medical facility are performed using dose modulation techniques as appropriate to a performed exam including the following: Automated exposure control was utilized; adjustment of the MA and/or KV according to patient size; and use of iterative reconstruction technique. CT Dose: CTDI volume is 11 mGy. Dose-length product is 705 mGy*cm FINDINGS: Lower Chest: Bibasilar subsegmental atelectasis is noted. Hepatobiliary: Hepatic steatosis. Spleen: Unremarkable. Pancreas: Unremarkable. Adrenal Glands: Unremarkable. tract: The kidneys are normal in size bilaterally without hydronephrosis or nephrolithiasis. Bladder is decompressed with a Keene catheter and cannot be adequately assessed. Few subcentimeter bilateral renal cysts are incompletely evaluated in the current unenhanced study. Bladder wall is trabeculated. GI tract: The stomach is grossly normal in appearance. No evidence of small bowel obstruction. Diffuse colonic diverticulosis, severe in the sigmoid colon without evidence of diverticulitis. The appendix is normal. Lymphatics: No mesenteric, retroperitoneal or periportal lymphadenopathy. Vasculature: The abdominal aorta is normal in caliber. Diffuse calcified plaque formation is noted. Pelvic Organs: Enlarged prostate measuring 6.5 x 5.7 cm with a subcentimeter calcification noted in anterior left paramedian lower gland. Fat stranding noted surrounding the prostate and seminal vesicles. Bones/soft tissues: No acute abnormality. Multilevel degenerative changes of the lumbar spine noted. Other: None. IMPRESSION: 1. Enlarged prostate with moderate fat stranding surrounding the prostate and seminal vesicles that may represent prostatitis or seminal vesiculitis. Recommend clinical and biochemical correlation.No drainable fluid collection is seen in this unenhanced study. No significant pelvic or retroperitoneallymphadenopathy. 2. Hepatic steatosis. 3. Small bilateral renal cysts, incompletely evaluated in this unenhanced study.Recommend correlation withultrasound. 4. Diffuse colonicdiverticulosis without diverticulitis. ATED BY: ELLEN MAGALLON MD DICTATED DATE/TIME: 09/13/24942 SIGNED BY: ELLEN MAGALLON MD SIGNED DATE/TIME: 09/13/24942 CC: laboratory and microbiology Laboratory Tests 09/16/24 06:22 Test 09/16/24 06:22 Range/Units Serum Glucose 95 74-106 mg/dL Problem List Enlarged prostate gland Prostate cancer Urinary retention elevated WBC UTI Assessment/Plan CT Scan does not show evidence of lymphadenopathy. Bone Scan still pending Urine culture reported E. coli sensitive to Ceftriaxone. TURP on Tuesday09/17/24 Plan discussed with: Patient PAM RAMIREZ MD Sep 16, 2024 20:34
[2024-09-16 20:52] VITALS: BP 141/68; PULSE 102; RESP 18; TEMP 98.2; O2SAT 96
[2024-09-17] VITALS (7 sets, daily range): BP systolic 102–147; BP diastolic 38–86; PULSE 60–104; RESP 15–18; TEMP 97.4–98.3; O2SAT 93–99
[2024-09-17 06:33] LABS: Chloride 105 mmol/L (98-107); Potassium 3.4 mmol/L (3.5-5.1); Sodium 138 mmol/L (136-145)
[2024-09-17 06:34] LABS: Anion Gap 10 (5-15); Basophils # (auto) 0 10 ^3/uL (0-0.2); Basophils % (auto) 0.2 % (0.0-2.0); Carbon Dioxide 23 mmol/L (20-31); Eosinophils # (auto) 0.3 10 ^3/uL (0-0.8); Eosinophils % (auto) 2.6 % (0.0-7.0); Hematocrit 39.8 % (41.0-53.0); Hemoglobin 14.1 g/dL (13.5-17.5); Lymphocytes # (auto) 1.4 10 ^3/uL (0.4-5.4); Lymphocytes % (auto) 12.8 % (10.0-50.0); Mean Corpuscular Hemoglobin 32.2 pg (28.0-32.0); Mean Corpuscular Hgb Conc. 35.4 g/dL (32.0-36.0); Monocytes # (auto) 1.3 10 ^3/uL (0-1.3); Monocytes % (auto) 12.2 % (0.0-12.0); Neutrophils # (auto) 7.7 10 ^3/uL (1.6-8.6); Neutrophils % (auto) 72.2 % (37.0-80.0); Platelet Count (auto) 265 10^3/uL (140-450); Red Blood Cells 4.38 10^6/uL (4.5-5.90); Red Cell Distribution Width 13.4 % (11.8-14.3); White Blood Cell 10.7 10^3/uL (4.4-10.8)
[2024-09-17 06:39] LABS: BUN/Creatinine Ratio 12.5 (10.0-20.0); Blood Urea Nitrogen 13 mg/dL (9-23); Glucose 108 mg/dL (74-106)
[2024-09-17] MEDS: POTASSIUM CHL 20MEQ/100ML 100 ML IV ONE (08:58)
--- NOTE | 2024-09-17 09:53 | DVHPNRES ---
Progress Note Date Seen: Sep 17, 2024 Resident Creating Document: KAEL LARA RESIDENT Has the PT tested + for MRSA If YES, has PT been informed?: No Medical Necessity Reason Pt with a Central, PICC or Fol: Yes The following are medically ne: Keene Catheter Reason for keene catheter: Bladder Retention/Obstruc Subjective Review of Systems Patient is an 79-year-old male with past medical history of BPH, recently diagnosed prostatic carcinoma, postoperative urinary retention with Keene catheter in place, hypertension, who was admitted from his urologist office for evaluation of prostate cancer. Patient reports he had a prostatic biopsy on 08/21/2024, after which he has been experiencing urinary retention, prior to the biopsy patient had urinary incontinence. Patient notes that he was sent home with a catheter after the prostatic biopsy which was subsequently removed on 09/06/2024 by an the nurse in the ER. Patient was recatheterized yesterday on 09/12/2024 at the urologist's office. Past surgical history: Denies Home medications: Denies, reports having recently completed a course of antibiotics for 10 days, patient unsure which antibiotic Past Hospitalization: In August 2024 at the [facility] for observation after prostatic biopsy Social & Personal history: Patient lives with his family in [place]. Denies using tobacco, drinks alcohol on weekends, 2 beers per day. Denies using any drugs. Allergies: Denies Patient seen and examined at bedside. Patient is alert and oriented to time, place person and responding to all questions. Details of patient's diagnosis and management were discussed with the patient in detail, all questions were answered and concerns addressed. Patient denies any active discomfort or pain, however, Keene is still draining matias yellow urine. Objective vital signs Vital Sign Date Time Temp Pulse Resp B/P (MAP) Pulse Ox O2 Delivery O2 Flow Rate FiO2 09/17/24 08:59 98.0 90 15 127/75 (92) 93 98.0 09/17/24 08:00 Room Air* 0 21 Total Intake and Output 09/16/24 09/16/24 09/17/24 15:00 23:00 07:00 Intake Total 250 ml 1360 ml 0 ml Output Total 800 ml 300 ml Balance 250 ml 560 ml -300 ml medications Current Medications Medications Dose Ordered Sig/Bereket Route Start Time Stop Time Status Last Admin Dose Admin Nitroglycerin 0.4 mg Q5MINP PRN SL 09/12/24 17:30 Morphine Sulfate 2 mg Q30M PRN IV 09/12/24 17:30 Acetaminophen 650 mg Q6HP PRN PO 09/12/24 21:45 09/14/24 06:45 650 MG Sodium Chloride 1,000 ml @ 100 mls/hr Q10H IV 09/12/24 22:30 09/17/24 06:34 100 MLS/HR Ergocalciferol 50,000 unit Q7D PO 09/13/24 01:45 09/13/24 06:58 50,000 UNIT Vancomycin HCl 0 ml @ 0 mls/hr UD IV 09/13/24 18:00 Vancomycin HCl 200 ml @ 200 mls/hr Q24H IV 09/15/24 12:00 09/16/24 11:08 200 MLS/HR Ceftriaxone Sodium 50 ml @ 100 mls/hr DAILY@09 IV 09/16/24 09:00 09/17/24 08:58 100 MLS/HR Examination General Appearance: Cooperative. Well developed. Head Exam: Normal inspection Neck Exam: Normal inspection. Non-tender. Normal alignment Pulmonary/Respiratory: Chest non-tender. Clear bilateral breath sounds, no crackles, no wheezing. Cardiovascular/Chest: Regular rate and rhythm. No murmurs. No JVD. Peripheral Pulses: 2+ Radial (R). 2+ Radial (L). 2+ Pedal (R). 2+ Pedal (L) Abdominal Exam: Normal bowel sounds. Soft. normal abdomen, no visible veins. No hepatosplenomegaly. No masses. Suprapubic tenderness mild noted Ankle Exam: Negative ankle edema Lower extremities: Negative lower extremity edema Neuro/Mental Status: A&O x4. Coherent. Thoughts/Psych: Normal thought pattern. Appropriate mood and affect. Good judgement and insight Skin Exam: Normal inspection. Normal color. Warm. Dry laboratory and microbiology Laboratory Tests 09/17/24 05:24 Test 09/17/24 05:24 Range/Units Serum Glucose 108 H 74-106 mg/dL Microbiology Date/Time Source Procedure Growth Status 09/13/24 11:00 Blood Blood Culture - Preliminary NO GROWTH AFTER 72 HOURS OF INCUBATION. Resulted 09/13/24 09:30 Voided Urine Urine Culture - Final Escherichia coli Complete 09/12/24 21:00 Nose MRSA Screen - Final Complete Problem List/Assessment/Plan Problem List/Assessment/Plan Acute prostatitis versus seminal vesiculitis Possible sepsis due to above - IV NS at 100 cc/hour - IV ciprofloxacin 400 mg q.12 - IV vancomycin per pharmacy - CT abdomen pelvis: Enlarged prostate with moderate fat stranding surrounding the prostate and seminal vesicles that may represent prostatitis or seminal vesiculitis. Recommend clinical and biochemical correlation.No drainable fluid collection is seen in this unenhanced study. No significant pelvic or retroperitoneallymphadenopathy.Hepatic steatosis. Small bilateral renal cysts, incompletely evaluated in this unenhanced study.Recommend correlation withultrasound. Diffuse colonicdiverticulosis without diverticulitis. - ordered PT evaluation Recently diagnosed prostatic cancer Benign prostatic hyperplasia Postoperative urinary retention with the urinary catheter in place - urology consulted; CT scan does not show evidence of lymphadenopathy - bone scan pending - pending urine bacterial culture - scheduled for TURP today on 09/17/2024; pending outcome of bone scan results. LUISITO, likely hemodynamically mediated/VMN vs post-obstructive nephropathy - IV NS at 100 cc/hour Euvolemic hyponatremia, mild, likely SIADH, asymptomatic - we will continue to monitor Hypertension, currently stable - we will continue to monitor Vitamin-D deficiency - repleted Hypokalemia - replace potassium 25 mEq p.o. DVT prophylaxis: SCD. Goals of care: Full code, discussed for >16 minutes on 09/13/24 Plan discussed with patient Plan discussed with Dr. Nichols Plan discussed with: Patient, Other (RN) My Orders My Orders Orders - KAEL LARA Procedure Category Date Status Time Pt Request For Service PT 09/16/24 Logged 10:41 Basic Metabolic Panel LAB 09/18/24 Verified 04:00 Date of Service: Sep 17, 2024 Billing Provider: DANIELLE NICHOLS MD Common Visit Codes: [id number] INP/OBS CARE(HIGH) KAEL LARA Sep 17, 2024 09:53 DANIELLE NICHOLS MD Sep 17, 2024 13:18
[2024-09-17] MEDS ORDERED: MIDAZOLAM HCL 2MG/2ML 2ml VIAL (1mg/ml) ONE (16:12)
[2024-09-17] MEDS ORDERED: HYDROmorphone HCL 2 MG/ML VL/or syr ONE (16:12)
[2024-09-17] MEDS ORDERED: fentaNYL CITRATE 100 MCG/2 ML VL ONE ×2 (16:12→17:25)
[2024-09-17] MEDS ORDERED: GLYCOPYRROLATE 0.2 MG/ML 1ML VIAL ONE (16:13)
[2024-09-17] MEDS ORDERED: ROCURONIUM 10MG/ML 10ML VIAL IV ONE (16:13)
[2024-09-17] MEDS ORDERED: LIDOCAINE 2% (LOCAL ANESTH.) PF 5ml SDV ONE (16:13)
[2024-09-17] MEDS ORDERED: ePHEDrine SULFATE 50 MG/ML AMP ONE (16:13)
[2024-09-17] MEDS ORDERED: PHENYLEPHRINE HCL 10 MG/ML VL ONE (16:13)
[2024-09-17] MEDS ORDERED: PROPOFOL 10 MG/ML 20 ML IV ONE (16:13)
[2024-09-17] MEDS ORDERED: DexAMETHasone SOD PHOS 10MG/1ML VIAL INJ ONE (16:13)
[2024-09-17] MEDS: levoFLOXacin 500MG 100 ML IV ONE (16:39)
--- NOTE | 2024-09-17 18:03 | POSTOP ---
Post-Operative Note Post-Operative Note Preop Diagnosis Urinary retention Prostate cancer Urinary tract infection Postop Diagnosis: Same Operation performed Trans urethral resection of the prostate gland Anesthesia: General Anesthesiologist: Arnol Surgeon Pam Ramirez Date 09/17/24 Time 18:02 PAM RAMIREZ MD Sep 17, 2024 18:03
[2024-09-17] MEDS ORDERED: HYDROmorphone HCL 2 MG/ML VL/or syr IV PRN (18:15)
[2024-09-17] MEDS: ONDANSETRON HCL 4 MG/2 ML VIAL IV ONE (18:24)
[2024-09-18 01:00] VITALS: BP 142/90; PULSE 88; RESP 17; O2SAT 96
[2024-09-18 05:00] VITALS: BP 135/73; PULSE 77; RESP 19; TEMP 97.4; O2SAT 96
[2024-09-18 05:07] LABS: Basophils # (auto) 0 10 ^3/uL (0-0.2); Basophils % (auto) 0.1 % (0.0-2.0); Eosinophils # (auto) 0 10 ^3/uL (0-0.8); Hematocrit 41.2 % (41.0-53.0); Hemoglobin 13.9 g/dL (13.5-17.5); Lymphocytes # (auto) 0.5 10 ^3/uL (0.4-5.4); Lymphocytes % (auto) 5.8 % (10.0-50.0); Mean Corpuscular Hemoglobin 31.2 pg (28.0-32.0); Mean Corpuscular Hgb Conc. 33.8 g/dL (32.0-36.0); Mean Corpuscular Volume 92.5 fL (80.0-100.0); Monocytes # (auto) 0.2 10 ^3/uL (0-1.3); Monocytes % (auto) 2.1 % (0.0-12.0); Neutrophils # (auto) 8.6 10 ^3/uL (1.6-8.6); Platelet Count (auto) 286 10^3/uL (140-450); Red Blood Cells 4.45 10^6/uL (4.5-5.90); Red Cell Distribution Width 13.9 % (11.8-14.3); White Blood Cell 9.3 10^3/uL (4.4-10.8)
[2024-09-18 05:27] LABS: Alanine Aminotransferase 46 U/L (7-40); Alkaline Phosphatase 348 U/L (46-116); Anion Gap 10 (5-15); BUN/Creatinine Ratio 16.9 (10.0-20.0); Blood Urea Nitrogen 15 mg/dL (9-23); Carbon Dioxide 20 mmol/L (20-31); Chloride 104 mmol/L (98-107); Glucose 132 mg/dL (74-106); Potassium 4.3 mmol/L (3.5-5.1); Sodium 134 mmol/L (136-145)
[2024-09-18 05:28] LABS: Albumin 3.4 g/dL (3.2-4.8); Aspartate Aminotransferase 45 U/L (13-40); Bilirubin, Total 0.5 mg/dL (0.2-1.0); Total Protein 6.7 g/dL (5.7-8.2)
[2024-09-18 08:39] VITALS: BP 132/76; PULSE 66; RESP 18; TEMP 97.5; O2SAT 97
[2024-09-18 12:50] VITALS: BP 127/64; PULSE 77; RESP 18; TEMP 97.5; O2SAT 95
[2024-09-18] MEDS ORDERED: CIPR-173 PO (13:55)
--- NOTE | 2024-09-18 14:58 | DVHDSRES ---
Discharge Summary Date of Admission Resident Creating Document: KAEL LARA RESIDENT Sep 12, 2024 at 16:53 Date of Discharge: Sep 18, 2024 Labs/Diagnostic Data: Laboratory Results Test 09/18/24 13:00 09/18/24 04:03 09/15/24 06:24 09/13/24 09:30 Vancomycin Level Trough 42.4 ug/mL (5-10) White Blood Count 9.3 10^3/uL (4.4-10.8) Red Blood Count 4.45 10^6/uL (4.5-5.90) Hemoglobin 13.9 g/dL (13.5-17.5) Hematocrit 41.2 % (41.0-53.0) Mean Corpuscular Volume 92.5 fL (80.0-100.0) Mean Corpuscular Hemoglobin 31.2 pg (28.0-32.0) Mean Corpuscular Hemoglobin Concent 33.8 g/dL (32.0-36.0) Red Cell Distribution Width 13.9 % (11.8-14.3) Platelet Count 286 10^3/uL (140-450) Mean Platelet Volume 7.3 fL (6.9-10.8) Neutrophils (%) (Auto) 92.0 % (37.0-80.0) Lymphocytes (%) (Auto) 5.8 % (10.0-50.0) Monocytes (%) (Auto) 2.1 % (0.0-12.0) Eosinophils (%) (Auto) 0.0 % (0.0-7.0) Basophils (%) (Auto) 0.1 % (0.0-2.0) Neutrophils # (Auto) 8.6 10 ^3/uL (1.6-8.6) Lymphocytes # (Auto) 0.5 10 ^3/uL (0.4-5.4) Monocytes # (Auto) 0.2 10 ^3/uL (0-1.3) Eosinophils # (Auto) 0 10 ^3/uL (0-0.8) Basophils # (Auto) 0 10 ^3/uL (0-0.2) Nucleated Red Blood Cells 0.0 % Sodium Level 134 mmol/L (136-145) Potassium Level 4.3 mmol/L (3.5-5.1) Chloride Level 104 mmol/L (98-107) Carbon Dioxide Level 20 mmol/L (20-31) Anion Gap 10 (5-15) Blood Urea Nitrogen 15 mg/dL (9-23) Creatinine 0.89 mg/dL (0.700-1.30) Glomerular Filtration Rate Calc 86 mL/min (>90) BUN/Creatinine Ratio 16.9 (10.0-20.0) Serum Glucose 132 mg/dL (74-106) Calcium Level 9.0 mg/dL (8.7-10.4) Total Bilirubin 0.5 mg/dL (0.2-1.0) Aspartate Amino Transferase (AST) 45 U/L (13-40) Alanine Aminotransferase (ALT) 46 U/L (7-40) Alkaline Phosphatase 348 U/L (46-116) Total Protein 6.7 g/dL (5.7-8.2) Albumin 3.4 g/dL (3.2-4.8) Random Vancomycin Level 7.9 ug/mL (5-10) Urine Color Light-orange (Yellow) Urine Clarity Turbid (Clear) Urine pH 5.5 (5.0-9.0) Urine Specific Sophia 1.006 (1.001-1.035) Urine Protein 1+ (Negative) Urine Ketones 1+ (Negative) Urine Blood 3+ /uL (Negative) Urine Nitrite 2+ (Negative) Urine Bilirubin Negative (Negative) Urine Urobilinogen Normal mg/dL (Negative) Urine Leukocyte Esterase 3+ /uL (Negative) Urine RBC 8 /hpf (0 - 3) Urine WBC 38 /hpf (0 - 3) Urine Squamous Epithelial Cells None seen /hpf (<5) Urine Bacteria Few /hpf (None Seen) Urine Sodium 25 mmol/L (40-220) Urine Glucose Normal mg/dL (Normal) Test 09/13/24 04:33 09/12/24 18:24 Serum Osmolality 279 mOsm/kg (278-298) Lactic Acid Level 1.1 mmol/L (0.4-2.0) Prothrombin Time 12.1 sec (9.3-11.8) Prothrombin Time INR 1.15 (0.9-1.15) Activated Partial Thromboplast Time 36.2 SEC (24.5-34.5) Hemoglobin A1c 5.2 % A1C (<5.7) Vitamin B12 Level 337 pg/mL (211-911) Vitamin D 25-Hydroxy 20.8 ng/mL (30.0-100) Thyroid Stimulating Hormone (TSH) 0.87 uIU/mL (0.55-4.78) Other Laboratory Tests 09/18/24 04:03 Brief Hx & Hospital Course: Patient is an 79-year-old male with past medical history of BPH, recently diagnosed prostatic carcinoma, postoperative urinary retention with Choi catheter in place, hypertension, who was admitted from his urologist office for evaluation of prostate cancer. Patient reports he had a prostatic biopsy on 08/21/2024, after which he has been experiencing urinary retention, prior to the biopsy patient had urinary incontinence. Patient notes that he was sent home with a catheter after the prostatic biopsy which was subsequently removed on 09/06/2024 by an the nurse in the ER. Patient was recatheterized yesterday on 09/12/2024 at the urologist's office. Hospital course: CT abdomen pelvis showed enlarged prostate with moderate fat stranding surrounding the prostate and seminal vesicles that may represent prostatitis or seminal vesiculitis. Recommend clinical and biochemical correlation. No drainable fluid collection is seen in this unenhanced study. No significant pelvic or retroperitoneal lymphadenopathy. Hepatic steatosis. Small bilateral renal cysts, incompletely evaluated on this unenhanced study. Recommend correlation with ultrasound. Diffuse colonic diverticulosis without diverticulitis. Urology was taken on board and bone scan was ordered for the patient. Patient was started on IV NS at 100 cc/hour, IV ciprofloxacin 400 mg q.12 hours and IV vancomycin per pharmacy. Physical therapy was ordered for the patient. On 09/17/2024, patient underwent transurethral resection of the prostate without any complications. On the day of discharge, patient had stable vital signs and appeared well. White count had come back to within normal limits. Liver functions were trending down. Patient was prescribed ciprofloxacin 500 mg b.i.d. for 5 days. His hospital course was uncomplicated. General Appearance: Cooperative. Well developed. Head Exam: Normal inspection Neck Exam: Normal inspection. Non-tender. Normal alignment Pulmonary/Respiratory: Chest non-tender. Clear bilateral breath sounds, no crackles, no wheezing. Cardiovascular/Chest: Regular rate and rhythm. No murmurs. No JVD. Peripheral Pulses: 2+ Radial (R). 2+ Radial (L). 2+ Pedal (R). 2+ Pedal (L) Abdominal Exam: Normal bowel sounds. Soft. normal abdomen, no visible veins. No hepatosplenomegaly. No masses. Suprapubic tenderness mild noted Ankle Exam: Negative ankle edema Lower extremities: Negative lower extremity edema Neuro/Mental Status: A&O x4. Coherent. Thoughts/Psych: Normal thought pattern. Appropriate mood and affect. Good judgement and insight Skin Exam: Normal inspection. Normal color. Warm. Dry Operations or Procedures Post-Operative Note Preop Diagnosis Urinary retention Prostate cancer Urinary tract infection Postop Diagnosis: Same Operation performed Trans urethral resection of the prostate gland Anesthesia: General Anesthesiologist: Arnol Johns Date 09/17/24 Time 18:02 Procedure: CT CT AB PEL WO CON-NO ORAL OR IV 09/13/2024 09:05 AM Indication:prostate cancer. Comparison Study: None available at time of dictation. Technique: Axial images were obtained and reformatted in coronal and sagittal planes. All CT scans at this medical facility are performed using dose modulation techniques as appropriate to a performed exam including the following: Automated exposure control was utilized; adjustment of the MA and/or KV according to patient size; and use of iterative reconstruction technique. CT Dose: CTDI volume is 11 mGy. Dose-length product is 705 mGy*cm FINDINGS: Lower Chest: Bibasilar subsegmental atelectasis is noted. Hepatobiliary: Hepatic steatosis. Spleen: Unremarkable. Pancreas: Unremarkable. Adrenal Glands: Unremarkable. tract: The kidneys are normal in size bilaterally without hydronephrosis or nephrolithiasis. Bladder is decompressed with a Choi catheter and cannot be adequately assessed. Few subcentimeter bilateral renal cysts are incompletely evaluated in the current unenhanced study. Bladder wall is trabeculated. GI tract: The stomach is grossly normal in appearance. No evidence of small bowel obstruction. Diffuse colonic diverticulosis, severe in the sigmoid colon without evidence of diverticulitis. The appendix is normal. Lymphatics: No mesenteric, retroperitoneal or periportal lymphadenopathy. Vasculature: The abdominal aorta is normal in caliber. Diffuse calcified plaque formation is noted. Pelvic Organs: Enlarged prostate measuring 6.5 x 5.7 cm with a subcentimeter calcification noted in anterior left paramedian lower gland. Fat stranding noted surrounding the prostate and seminal vesicles. Bones/soft tissues: No acute abnormality. Multilevel degenerative changes of the lumbar spine noted. Other: None. IMPRESSION: 1. Enlarged prostate with moderate fat stranding surrounding the prostate and seminal vesicles that may represent prostatitis or seminal vesiculitis. Recommend clinical and biochemical correlation.No drainable fluid collection is seen in this unenhanced study. No significant pelvic or retroperitoneallymphadenopathy. 2. Hepatic steatosis. 3. Small bilateral renal cysts, incompletely evaluated in this unenhanced study.Recommend correlation withultrasound. 4. Diffuse colonicdiverticulosis without diverticulitis. Condition at Discharge: Good Final Diagnosis/Problems List Acute prostatitis versus seminal vesiculitis Possible sepsis due to above Recently diagnosed prostatic cancer Benign prostatic hyperplasia Postoperative urinary retention with the urinary catheter in place LUISITO, likely hemodynamically mediated/VMN vs post-obstructive nephropathy Euvolemic hyponatremia, mild, likely SIADH, asymptomatic Hypertension, currently stable Vitamin-D deficiency Hypokalemia Diverticulosis without diverticulitis Discharge Disposition: Home Discharge Instruct/Medications Diet: Cardiac 2g Na,low cholest Activity: No Restrictions, As Tolerated Follow Up/Referral: Follow-up with PCP in 1-2 weeks Please schedule follow up with Urology in the outpatient clinic Medications: ciprofloxacin 500mg twice a day for 5 days Discharge Statement: "Patient was advised to return to the ER or call 911 if any headaches, dizziness, shortness of breath, chest pain, abdominal pain, bleeding, fevers, or worsening of medical condition. Patient was counseled about treatment plan, medications, possible side effects, patientverbalized understanding. All questions were answered to the best of my ability. This discharge took greater then 30 minutes in planning, reviewing documentation, counseling the patient, and discussing with other team members." ASSESSMENT ASSESSMENT Assessment Acute prostatitis versus seminal vesiculitis Possible sepsis due to above Recently diagnosed prostatic cancer Benign prostatic hyperplasia Postoperative urinary retention with the urinary catheter in place LUISITO, likely hemodynamically mediated/VMN vs post-obstructive nephropathy Euvolemic hyponatremia, mild, likely SIADH, asymptomatic Hypertension, currently stable Vitamin-D deficiency Hypokalemia Date of Service: Sep 18, 2024 Billing Provider: DANIELLE BAEZ MD Common Visit Codes: 33030-LAU/OBS DISCH DAY >30min KAEL LARA Sep 18, 2024 14:58 DANIELLE BAEZ MD Sep 18, 2024 15:43
--- NOTE | 2024-09-18 16:10 | DVH ---
Procedure: NM BONE WHOLE BODY Exam Date: 09/18/2024 02:12 PM Reason for study/Clinical History: prostate cancer Comparison Study: CT scan dated 09/13/2024 Nuclear Medicine Whole Body Bone Scan Technique: Following the intravenous administration of 20.8 millicuries of technetium 99m labeled MDP, whole bod y images in the anterior and posterior projections were obtained 3 hours following the administration of radiopharmaceutical. Findings: No suspicious osseous uptake is seen. Mild degenerative radiotracer activity in the bilateral knee an d shoulder joints . Physiologic activity noted in the bilateral kidneys. Impression: 1. There is no evidence of focal increased uptake consistent with bony metastatic disease.
== END 2024-09-18 16:19 | disposition home or self-care (01) | DRG 853 ==
LOC: WEST WING 16:53
PROVIDERS: ADMIT Internal Medicine; ATTEND Internal Medicine
PROC: 0VT08ZZ Resection of Prostate, Via Natural or Artificial Opening Endoscopic (ICD-10-PCS; principal; 2024-09-17 16:49)
DX: A41.9 Sepsis, unspecified organism (principal); N17.0 Acute kidney failure with tubular necrosis; N39.0 Urinary tract infection, site not specified; E87.1 Hypo-osmolality and hyponatremia; N41.0 Acute prostatitis; C61 Malignant neoplasm of prostate; N40.1 Benign prostatic hyperplasia with lower urinary tract symptoms; E55.9 Vitamin D deficiency, unspecified; R33.8 Other retention of urine; I10 Essential (primary) hypertension; E87.6 Hypokalemia; E66.9 Obesity, unspecified; N49.0 Inflammatory disorders of seminal vesicle; K57.30 Diverticulosis of large intestine without perforation or abscess without bleeding; Z80.0 Family history of malignant neoplasm of digestive organs; Z68.33 Body mass index [BMI] 33.0-33.9, adult
CPT/HCPCS: 36415; 71045; 74176; 78306; 80048; 80053; 80202; 81001; 82306; 82565; 82607; 83036; 83605; 83930; 84300; 84443; 85025; 85610; 85730; 87040; 87081; 87086; 87088; 87186; 97110; 97163; G0378; J1100; J1956; J2003; J2250; J2704; J3480

== ENCOUNTER → 2025-01-22 | Outpatient (CLI) | payer OTHER ==
[~2025-01-22] MED LIST changes: +CIPR-173 PO; -CIPR500T4 PO; -TRAM50TA2 PO
[2025-01-22 08:07] LABS: Urine Bacteria None Seen /hpf (None Seen)
[2025-01-22 08:45] LABS: Alanine Aminotransferase 11 U/L (7-40); Albumin 4.4 g/dL (3.2-4.8); Anion Gap 8 (5-15); Aspartate Aminotransferase 17 U/L (13-40); BUN/Creatinine Ratio 12.7 (10.0-20.0); Blood Urea Nitrogen 16 mg/dL (9-23); Calcium 9.7 mg/dL (8.7-10.4); Carbon Dioxide 28 mmol/L (20-31); HDL Cholesterol 54 mg/dL (40-59); Potassium 4.2 mmol/L (3.5-5.1); Sodium 143 mmol/L (136-145); Total Protein 7.8 g/dL (5.7-8.2); Triglycerides 138 mg/dL (< 150)
[2025-01-22 08:46] LABS: Bilirubin, Total 0.6 mg/dL (0.2-1.0)
[2025-01-22 08:47] LABS: Basophils # (auto) 0 10 ^3/uL (0-0.2); Basophils % (auto) 0.7 % (0.0-2.0); Eosinophils # (auto) 0.2 10 ^3/uL (0-0.8); Eosinophils % (auto) 4.2 % (0.0-7.0); Hematocrit 45.6 % (41.0-53.0); Hemoglobin 15.7 g/dL (13.5-17.5); Lymphocytes # (auto) 1.1 10 ^3/uL (0.4-5.4); Lymphocytes % (auto) 22.3 % (10.0-50.0); Mean Corpuscular Hemoglobin 31.4 pg (28.0-32.0); Mean Corpuscular Hgb Conc. 34.3 g/dL (32.0-36.0); Mean Corpuscular Volume 91.4 fL (80.0-100.0); Monocytes # (auto) 0.4 10 ^3/uL (0-1.3); Monocytes % (auto) 7.9 % (0.0-12.0); Neutrophils # (auto) 3.2 10 ^3/uL (1.6-8.6); Neutrophils % (auto) 64.9 % (37.0-80.0); Nucleated Red Blood Cells % 0.1 %; Platelet Count (auto) 203 10^3/uL (140-450); Red Blood Cells 4.99 10^6/uL (4.5-5.90); Red Cell Distribution Width 14.5 % (11.8-14.3); White Blood Cell 4.9 10^3/uL (4.4-10.8)
[2025-01-22 08:49] LABS: Chloride 107 mmol/L (98-107); Cholesterol 202 mg/dL (< 200); Glucose 108 mg/dL (74-106); LDL Cholesterol 129 mg/dL (< 100)
[2025-01-22 08:54] LABS: Urine Blood 2+ /uL (Negative); Urine Clarity Clear (Clear); Urine Color Colorless (Yellow); Urine Protein, UAD Negative (Negative); Urine Specific Gravity 1.008 (1.001-1.035); Urine Squamous Epithelial Cell None Seen /hpf (<5); Urine Urobilinogen Normal (Negative); Urine WBC 10 /HPF (0-3)
[2025-01-22 10:14] LABS: Alkaline Phosphatase 137 U/L (46-116)
== END | disposition home or self-care (01) ==
LOC: LAB 07:55
PROVIDERS: ATTEND Nurse Practitioner
DX: I10 Essential (primary) hypertension (principal); E78.5 Hyperlipidemia, unspecified; R73.9 Hyperglycemia, unspecified
CPT/HCPCS: 36415; 80053; 80061; 81001; 83036; 84443; 85025

== ENCOUNTER 2025-10-21 08:59 | Outpatient (CLI) | payer OTHER ==
[2025-10-22 08:07] LABS: Prostate Specific Antigen 0.7 ng/mL (0.0-4.0)
== END 2025-10-21 17:00 | disposition home or self-care (01) ==
LOC: LAB 08:59
PROVIDERS: ATTEND Radiology Radiation Oncology
DX: C61 Malignant neoplasm of prostate (principal)
CPT/HCPCS: 84154